=== PATIENT | male | born 1930 | race Caucasian/White ===

== ENCOUNTER 2016-05-04 22:56 | Inpatient (IN) | payer MEDICARE ==
--- NOTE | ~2016-05-04 | OR ---
Unit #: [id number] #: [id number] Patient: NINFA GRANADOS [id number] [address] [address] [id number] I MR#: [id number] NAME: NINFA GRANADOS ROOM: [facility] Date of Procedure: 05/05/2016 Admission Date: 05/05/2016 Surgeon: Sharath Mckeon M.D. : 1930 Attending Physician: Lisa Otero M.D. Primary Care Physician: Williams Mckeon M.D. OPERATIVE REPORT PREOPERATIVE DIAGNOSIS Left femoral neck fracture. POSTOPERATIVE DIAGNOSIS Left femoral neck fracture. PROCEDURE PERFORMED Left hip bipolar hemiarthroplasty, [address]. BIOINFORMATICS SUPPORT SPECIALIST Cy Jean CFA. ANESTHESIA General endotracheal. COMPLICATIONS None. SPECIMENS None. DRAINS None. SURGICAL IMPLANTS 1. Meredith Advocate bipolar hemiarthroplasty system. Size 15 femoral stem. 2. 35 mm outer diameter bipolar shell. 3. +3.5 mm neck length. 4. Distal centralizer. 5. Palacos R+G cement. INDICATION FOR PROCEDURE Mr. Granados is an 85-year-old gentleman who fell injuring his left hip at home. The patient was brought to emergency room, where x-rays confirmed femoral neck fracture. He was admitted to the Medical Service and cleared for surgery. It was felt he would benefit from left hip bipolar hemiarthroplasty. Risks, benefits, and alternatives of surgery were discussed with the patient and family and informed consent was obtained. Risks include, but not limited to, infection, bleeding, nerve injury, blood clots, risks associated with anesthesia, and possibly . DESCRIPTION OF PROCEDURE Unit #: [id number] #: [id number] Patient: NINFA GRANADOS On 05/05/2016, the patient was seen in the preoperative holding area, where his surgical site was marked. Preoperative antibiotics were received. H and P and consent updated. He was taken to the operating room and provided general anesthesia. He was placed in a right lateral decubitus position. Left hip prepped and draped in typical sterile fashion. Time-out performed confirming the correct surgical site and procedure. A standard posterior approach to the hip was performed. IT band and fascia were carefully split. Retractors were placed. Short external rotators were elevated along with the T-capsulotomy. Fracture site identified. Retractors placed and the femoral neck cut was made. Next, the femoral head was removed. It was sized at 53 mm. Trial shell was placed and noted to be appropriate. Sequential broaching of the femur was performed up to 15 mm. It was then reduced. It was felt to be stable. Final implants were opened. The femur was prepared. Cement restrictor was placed. It was brushed, followed by irrigated and suction. Cement was mixed on the back table in standard fashion. It was injected into the femur. The femoral stem was placed with careful attention to anteversion. Excess cement removed. After 12 minutes, the cement had hardened. A +3.5 mm trial head was placed and the hip was reduced. It was felt to be stable and leg lengths were appropriate. The final implant was opened and malleted into place. It was stable. It was then reduced. The T-capsulotomy was repaired. The hip was stable in all directions and leg lengths were felt to be appropriate. The remainder of 3 L normal saline containing bacitracin pulsed through the wound. Hemostasis noted. Deep tissue closed with 0 Vicryl, followed by 2-0 Vicryl for subcutaneous tissues, and cara for skin. Xeroform, 4x4s, ABD pad, tape and abduction pillow were placed. The patient was subsequently awakened from general anesthesia in stable condition and taken to the PACU postoperatively. POSTOPERATIVE PLAN The patient will return to his hospital room upstairs. He will be on standard 24-hour antibiotic protocol. He will be placed on Lovenox for DVT prophylaxis and have SCDs for mechanical prophylaxis. He will be weightbearing as tolerated with physical therapy with posterior hip precautions. No complications encountered during the surgical procedure. Dictated by... Sharath Mckeon M.D. SOUMYA/damon TD: 05/06/2016 02:32 JOB #: [id number] OPERATIVE REPORT X X PROCEDURE OPERATIVE NOTE
--- NOTE | ~2016-05-04 | CR150 ---
[facility] A Service of [facility] & [facility] RADIOLOGY TEXT RESULTS PATIENT: NINFA GRANADOS LOCATION: [facility] 449-01 : 31 UNIT #: [id number] AGE: [address]: Lisa Otero MD SEX: M ORDER DR: [id number] [facility] [address] [address] [facility]. [place], [place] [address] [id number] I MR#: [id number] Acc #: [id number] NAME: NINFA GRANADOS. : 1930 SEX: M STUDY DATE/TIME: 05/04/2016 22:08 UNIT: C4 ROOM: [facility] STUDY DESCRIPTION: CR Hip Min 2 Views Lt Attending Physician: Brenda Britton M.D. Ordering Physician: Mariola Zacarias M.D. Primary Care Physician: Williams Mckeon M.D. MEDICAL IMAGING REPORT This report is preliminary unless electronic signature is present EXAM Left hip 3 views 05/04/2016 HISTORY Left hip pain status post fall today. FINDINGS 3 views of the left hip demonstrate comminuted impacted fracture through the midportion of the left femoral neck with resulting varus deformity. No other fracture or dislocation is seen. The bones are normally mineralized. There is no soft tissue abnormality. IMPRESSION Comminuted impacted fracture through the left femoral neck with resulting varus deformity. Dictated by... Tello Chase M.D. THIS IS AN ELECTRONICALLY VERIFIED REPORT Tello Chase M.D. at 05/05/2016 2:19 PM KRT/lacey TD: 05/05/2016 06:16 JOB #: [id number] MEDICAL IMAGING REPORT COPY
--- NOTE | ~2016-05-04 | DS ---
Unit #: [id number] #: [id number] Patient: NINFA GRANADOS [id number] [address] [address] [id number] I MR#: [id number] NAME: NINFA GRANADOS ROOM: 472 Age: 85 Sex: M Admission Date: 05/05/2016 : 1930 Discharge Date: 05/09/2016 Attending Physician: Kayy Jiang M.D. Primary Care Physician: Williams Mckeon M.D. DISCHARGE SUMMARY ADDENDUM This is an addendum to previous discharge summary dictated by Dr. Otero on 05/08/16. Patient's discharge was held as we were waiting for a bed. The patient has a bed in rehab today; therefore, he will be transferred. The patient is comfortable. He is not in any acute distress. Medications as per med reconciliation form. Dictated by... Yaz Dumont/neto TD: 05/09/2016 12:58 JOB #: [id number] DISCHARGE SUMMARY X Kayy Jiang MD X DISCHARGE SUMMARY
--- NOTE | ~2016-05-04 | DS ---
Unit #: [id number] #: [id number] Patient: NINFA GRANADOS [id number] [address] [address] [id number] I MR#: [id number] NAME: NINFA GRANADOS. ROOM: 472 Age: 85 Sex: M Admission Date: 05/05/2016 : 1930 Discharge Date: Attending Physician: Lisa Otero M.D. Primary Care Physician: Williams Mckeon M.D. DISCHARGE SUMMARY PLANNED DATE OF DISCHARGE May 08, 2016 PRINCIPAL DIAGNOSES 1. Comminuted left femoral neck fracture status post left hip bipolar prosthesis. 2. Acute postoperative blood loss anemia. 3. Acute on probable chronic hypoxic respiratory failure. 4. Transaminitis, resolved. 5. Chronic kidney disease stage 3 with baseline creatinine of 1.7. 6. Hypothyroidism, uncontrolled. Thyroid stimulating hormone elevated at 15. 7. Mild left hip hematoma. 8. Osteoporosis. 9. History of hypertension with stable blood pressure off of antihypertensive medication currently. 10. Chronic obstructive pulmonary disease. 11. 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 12. Moderate protein malnutrition. 13. Reactive leukocytosis. 14. Depression. 15. Gastroesophageal reflux disease. 16. Tobaccoism. CONSULTANTS Dr. Mckeon, orthopedic surgery. PROCEDURES 1. Left hip bipolar hemiarthroplasty on May 05, 2016. This occurred without complication. 2. Left hip x-ray on May 04, 2016 with comminuted impacted fracture through the left femoral neck with resulting varus deformity. 3. Chest x-ray on May 04, 2016 with cardiomegaly. Fibrosis of the lung is noted. 4. X-ray of pelvis on May 05, 2016 with new hip replacement noted. CLINICAL HISTORY AND HOSPITAL COURSE Mr. Granados is a nice, 85-year-old male who presents to the emergency department with left-sided hip pain after falling at home. Please refer to H and P for further details. X-ray of the left hip in the emergency department revealed a fracture. Patient was also found to be significantly hypoxic in the emergency department with O2 sats in the high 80s on 4 L. He was also found to have an elevated creatinine of 1.7. Unit #: [id number] #: [id number] Patient: NINFA GRANADOS Patient was subsequently admitted. In regard to the patient's fracture, Dr. Mckeon was consulted and patient underwent left hip bipolar hemiarthroplasty. Postoperatively he has done very well. He has had a mild drop in his hemoglobin following surgery. Preoperative hemoglobin was found to be significantly elevated at 15.7 and at time of dictation is now down to 10.1. Examination is consistent with perhaps a very mild left hip hematoma. Will monitor hemoglobin and transfuse if necessary. He will remain on anticoagulation for two weeks total. I have also placed him on calcium and vitamin D given his new diagnosis of osteoporosis. He may benefit from bisphosphonates as an outpatient. In regard to the patient's hypoxia, he has been maintained on oxygen. Fortunately this has been titrated a bit since initial hospitalization but he is still requiring one to two liters of oxygen to maintain sats greater than 90%. A room air ABG done yesterday does reveal a significantly low pO2 of 50. I suspect he has some chronic respiratory failure at baseline. He will wear oxygen at rehab and they can evaluate for need of home O2 prior to discharge. In regard to the patient's elevated creatinine, his antihypertensive medications were held. Creatinine remains stable at 1.7. He has not had any significant post-void residual. This appears to be his baseline creatinine and it can be followed up by his primary care provider upon discharge. In regard to the patient's elevated LFTs, this is likely just reactive and these have normalized. Patient did not have any evidence of significant rhabdomyolysis. Patient has also had a reactive leukocytosis but this is trending down since hospitalization. I have discussed all these findings with the patient's daughter who expressed her understanding. She does not that he has some memory loss at baseline and is now not driving. He is needing help with his bills. She thinks he is also forgetting his medications at home; this maybe in agreement with his elevated TSH. We have discussed dementia extensively and perhaps some loss of function following hospitalization. I have also increased his Synthroid. He will need a followup TSH in six weeks. Patient is felt to be appropriate for subacute rehab and he will transfer to subacute rehab when bed available on the or . DISCHARGE CONDITION Stable. DISCHARGE STATUS Discharge to subacute rehab. DISCHARGE MEDICATIONS 1. DuoNeb nebulizer treatments 3 mL inhaled t.i.d. p.r.n. for shortness of air. 2. Lovenox 40 mg subcu q.24 h. to stop after dose on May 19, 2016. 3. Zoloft 50 mg q.h.s. 4. Zyrtec 10 mg daily. 5. Klonopin 0.25 mg q.h.s. p.r.n. for insomnia. Unit #: [id number] #: [id number] Patient: NINFA GRANADOS 6. Senokot S one tablet b.i.d. 7. Bisacodyl 5 mg p.o. b.i.d. p.r.n. for constipation. 8. Aspirin 81 mg daily. 9. [place] 5/325 one to two tablets q.4 h. p.r.n. for pain. 10. Prilosec 40 mg daily. 11. Os-Dandy 500 plus D one tablet b.i.d. 12. Levothyroxine 100 mcg p.o. daily. 13. Oxygen to maintain sats greater than or equal to 90%. DISCHARGE INSTRUCTIONS 1. The patient was instructed to follow a heart-healthy diet. 2. He can increase activity as tolerated under the care of Physical and Occupational Therapy. 3. Again will titrate O2 and will need O2 arranged at home if necessary. FOLLOWUP 1. The patient needs a followup TSH in six weeks. 2. Again home oxygen arranged if O2 sats are less than 90% on room air at rehab. 3. He will follow up with Dr. Mckeon in approximately two weeks. 4. He will follow up with his primary care provider, Dr. Williams Mckeon, upon discharge from rehab. 5. May need alternate living arrangements soon after rehab. Dictated by... Lisa Otero M.D. MYRA/arina TD: 05/07/2016 14:27 JOB #: [id number] DISCHARGE SUMMARY X Lisa Otero MD X DISCHARGE SUMMARY
--- NOTE | ~2016-05-04 | CR206 ---
[facility] A Service of [facility] RADIOLOGY TEXT RESULTS PATIENT: NINFA GRANADOS LOCATION: [place] [address] : [birth year] UNIT #: [id number] AGE: [address]: Lisa Otero MD SEX: M ORDER DR: [id number] [facility] [address] [facility]. [place], [place] [address] [id number] I MR#: [id number] Acc #: [id number] NAME: NINFA GRANADOS : 1930 SEX: M STUDY DATE/TIME: 05/05/2016 14:47 UNIT: [facility] ROOM: [facility] STUDY DESCRIPTION: CR Pelvis 1 or 2 Views Attending Physician: Lisa Otero M.D. Ordering Physician: Lisa Otero M.D. Primary Care Physician: Williams Mckeon M.D. MEDICAL IMAGING REPORT This report is preliminary unless electronic signature is present EXAM AP pelvis. DATE OF EXAM 05/05/2016 at 14:47. HISTORY Postop left hip surgery. Pain. Symptoms began today. COMPARISON Left hip radiograph 05/04/2016 at 22:08. FINDINGS There is a comminuted fracture of the greater trochanter of the left femur which appears new in comparison to the preoperative study of 05/04/2016. Left hip replacement changes are present, the prosthesis appears new in comparison to 05/04/2016. Left hip prosthesis appears appropriately located. Skin cara project over the left upper lateral thigh with expected postoperative subcutaneous air. Right hip joint spaces are mildly narrowed. Osteopenia. IMPRESSION New left hip replacement changes since 05/04/2016. There appears be a new comminuted fracture of the greater trochanter of the left femur. No hip dislocation. Dictated by... Analisa Mcnamara M.D. THIS IS AN ELECTRONICALLY VERIFIED REPORT Analisa Mcnamara M.D. at 05/06/2016 10:[address] [facility]/jt [facility] A Service of [facility] RADIOLOGY TEXT RESULTS PATIENT: NINFA GRANADOS LOCATION: [place] [address] : [birth year] UNIT #: [id number] AGE: [address]: Lisa Otero MD SEX: M ORDER DR: TD: 05/05/2016 22:14 JOB #: [id number] MEDICAL IMAGING REPORT COPY
--- NOTE | ~2016-05-04 | CO ---
Unit #: [id number] #: [id number] Patient: NINFA GRANADOS [id number] [address] [place], [place] [address] [id number] I MR#: [id number] NAME: NINFA GRANADOS ROOM: 449 Age: 85 Sex: M Admission Date: 05/05/2016 : 1930 Attending Physician: Lisa Otero M.D. Primary Care Physician: Williams Mckeon M.D. CONSULTATION REPORT HISTORY OF PRESENT ILLNESS Mr. Granados is an 85-year-old gentleman, who lives at home alone. His daughter does live down the street about a mile away, but he fell yesterday and injured his left hip. He was brought to the emergency room and his x-rays revealed a displaced left femoral neck fracture. He is admitted for orthopedic care. PAST MEDICAL HISTORY Reveals that he does have a history of lung disease. He is a chronic smoker three quarters of a pack a day and he does have some cardiac history. Although, he denies chest pain or shortness of breath. He has hypothyroidism, reflux, chronic kidney disease with an elevated creatinine, anxiety, fibromyalgia, and depression. PAST SURGICAL HISTORY His surgeries in the past include thyroid surgery. He had hemorrhoidectomy, cholecystectomy, colonoscopy, cataract excision, and some other type of abdominal surgery. He also had hernia repair. ALLERGIES He lists aspirin as an allergy, but he takes an 81 mg aspirin daily and he is also allergic to codeine. MEDICATIONS His medications at home include aspirin, Klonopin, Neurontin, Prilosec, Zoloft, Zyrtec, Synthroid, and Dyazide. SOCIAL HISTORY He lives at home. He continues to smoke about three quarters of a pack a day of cigarettes and he occasionally enjoys a glass of wine. PHYSICAL EXAMINATION GENERAL: Today, reveals that he is alert, awake, and oriented x3. VITAL SIGNS: He is afebrile, pulse is 79, his blood pressure is 118/70. MUSCULOSKELETAL: His orthopedic exam reveals his upper extremities move well. Right lower extremity moves well. His left hip is externally rotated. His neurovascular exam is intact. DIAGNOSTIC STUDIES IMAGING STUDIES: His x-rays were reviewed. He has a displaced left femoral neck fracture. PLAN Plan will be for a bipolar prosthesis on the left side. Unit #: [id number] #: [id number] Patient: NINFA GRANADOS Dictated by... Yaz Carrillo/damon TD: 05/05/2016 22:38 JOB #: [id number] CONSULTATION REPORT X Sterling Becerra MD X CONSULTATION REPORT
--- NOTE | ~2016-05-04 | EKG ---
PATIENT: NINFA GRANADOS UNIT #: [id number] Ventricular Rate: 79 BPM Atrial Rate: 79 BPM P-R Interval: 180 ms QRS Duration: 108 ms Q-T Interval: 382 ms QTC Calculation(Bezet): 438 ms P Morley: 38 degrees Calculated R Morley: -79 degrees Calculated T Morley: 16 degrees Diagnosis Line: Normal sinus rhythm Diagnosis Line: Left axis deviation Diagnosis Line: Anterior infarct (cited on or before 04-MAY-2016) Diagnosis Line: Abnormal ECG Diagnosis Line: When compared with ECG of 19-JUN-2015 22:39, Diagnosis Line: No significant change was found Diagnosis Line: Confirmed by REENA HAZEL MD ([id number]) on 05/05/2016 Diagnosis Line: 5:43:21 PM INTERPRETING MD: YASEMIN OMER
--- NOTE | ~2016-05-04 | HP ---
Unit #: [id number] #: [id number] Patient: NINFA GRANADOS [id number] [address] [place], [place] [address] [id number] I MR#: [id number] NAME: NINFA GRANADOS. ROOM: [facility] Age: 85 Sex: M Admission Date: 05/05/2016 : 1930 Attending Physician: Brenda Britton M.D. Primary Care Physician: Williams Mckeon M.D. HISTORY AND PHYSICAL CHIEF COMPLAINT Mechanical fall with left femoral neck fracture. HISTORY This pleasant 85-year-old male with hypertension, hypothyroidism, chronic kidney disease, is admitted for left femoral neck fracture. The patient tripped backwards last evening onto his left hip. He was able to call his daughter after being on the floor for about an hour. He was brought to this emergency department with a blood pressure of 100/69, pulse 81. X-rays demonstrate a left femoral neck fracture. The patient's O2 sats were also noted to be somewhat low in the ER requiring oxygen. He denies chronic lung disease but continues to smoke 3/4 pack per day of tobacco. Chest x-ray performed showed atelectasis versus pulmonary fibrosis. The patient denies history of heart disease. He had an echo performed 2010 showing normal LV function with impaired relaxation. A Cardiolite stress test was negative for ischemia at that time. His current EKG is unchanged from previous, and he denies any exertional chest pain. In the ER, he was given 4 mg of IV morphine, and Zofran. A call was also made to orthopedic surgery. PAST MEDICAL HISTORY 1. Hypertension. 2. Hypothyroidism. 3. GERD. 4. Chronic kidney disease with a creatinine of 1.3 to 1.5. 5. Depression. 6. Seasonal allergies. 7. Anxiety. 8. Fibromyalgia. 9. Echo 2010 showing normal LV function with impaired relaxation. Trace aortic regurgitation. Patient underwent a negative Cardiolite stress test for ischemia at that time. 10. Bilateral lymphedema. 11. Pilonidal cyst removed. 12. Abdominal surgery of some type. 13. Hemorrhoidectomy. 14. Cholecystectomy. 15. Colonoscopy with polyps removed. 16. Cataract extraction. 17. Inguinal hernia repair. ALLERGIES High dose aspirin although patient is able to take low dose aspirin. The Unit #: [id number] #: [id number] Patient: NINFA GRANADOS patient is also allergic to codeine. HOME MEDICATIONS 1. Aspirin 81 mg daily. 2. Klonopin 1 mg q. h.s. 3. Neurontin 300 mg b.i.d. 4. Prilosec 40 mg daily. 5. Zoloft 50 mg q. h.s. 6. Zyrtec 10 mg daily. 7. Synthroid 0.05 mg daily. 8. Dyazide one tablet daily. FAMILY HISTORY CAD. SOCIAL HISTORY The patient lives alone. Continues to smoke 3/4 pack per day of tobacco. Seldom drinks alcohol. REVIEW OF SYSTEMS Notable for mechanical fall, left hip pain, hypertension, hypothyroidism, GERD, anxiety/depression, fibromyalgia, lymphedema, above mentioned surgeries. All other systems were reviewed and are otherwise negative. PHYSICAL EXAMINATION GENERAL APPEARANCE: Pleasant 85-year-old male who currently is in no acute distress. VITAL SIGNS: Temperature 98.8, pulse 81, respirations 16, blood pressure 100/69. O2 saturation was 88% on oxygen. HEENT: Eyes PERRLA. Extraocular muscles are intact. Pharynx is benign. NECK: Supple without adenopathy or thyromegaly. CHEST: Fairly clear at present although ER doctor did auscultate some rales earlier. CARDIAC: Normal S1 and S2 without murmur. ABDOMEN: Bowel sounds are present. Multiple well-healed scars. Nontender. No hepatosplenomegaly or masses. EXTREMITIES: With mild edema. Pedal pulses are present bilaterally. Left leg is foreshortened and externally rotated. NEUROLOGIC EXAM: The patient is awake, alert, oriented. His cranial nerves are intact except that he is hard of hearing. He has equal strength throughout. DIAGNOSTIC STUDIES LABORATORY: Admission labs - hematocrit is 47.4, white blood count 15.5, normal platelet count. SMA-7 - BUN 25, creatinine 1.7, up from a creatinine of 1.3 to 1.5 in the past. IMAGING: Chest x-ray - stable cardiomegaly, atelectasis versus fibrosis. X-ray of the pelvis shows a left femoral neck fracture. CARDIOVASCULAR: EKG - normal sinus rhythm, rate 79, somewhat poor R wave progression. Left anterior fascicular block. This is unchanged from before. ASSESSMENT Unit #: [id number] #: [id number] Patient: NINFA GRANADOS 1. Mechanical fall with left femoral neck fracture. 2. History of hypertension, on Maxzide. 3. Acute on chronic kidney disease, possibly related to Maxzide. 4. Negative cardiac workup 2011 including echo and Cardiolite stress test. EKG is unchanged and the patient denies exertional chest pain. 5. Lower extremity lymphedema. 6. Ongoing tobacco abuse. 7. Mild respiratory failure, likely related to ongoing tobacco abuse and likely underlying chronic obstructive pulmonary disease. Cannot exclude pulmonary fibrosis. PLANS 1. The patient is cleared for surgery. 2. Duo-Nebs and smoking cessation counseling. 3. Obtain urinalysis. 4. Gentle IV fluids and discontinue Maxzide for now. 5. Orthopedic surgeon has been consulted. 6. Supportive treatment. 7. Decrease Klonopin while receiving pain medicines. Dictated by Yaz Hunt/df TD: 05/05/2016 05:13 JOB #: [id number] HISTORY AND PHYSICAL X Brenda Britton MD HISTORY AND PHYSICAL
--- NOTE | ~2016-05-04 | CR72 ---
[facility] A Service of [facility] & [facility] RADIOLOGY TEXT RESULTS PATIENT: NINFA GRANADOS LOCATION: [place] [address]- : 31 UNIT #: [id number] AGE: [address]: Lisa Otero MD SEX: M ORDER DR: [id number] [facility] [address] [place], [place] [address] [id number] I MR#: [id number] Acc #: [id number] NAME: NINFA GRANADOS. : 1930 SEX: M STUDY DATE/TIME: 05/04/2016 23:00 UNIT: [facility] ROOM: [facility] STUDY DESCRIPTION: CR Chest Single View Portable Attending Physician: Brenda Britton M.D. Ordering Physician: Mariola Zacarias M.D. Primary Care Physician: Williams Mckeon M.D. MEDICAL IMAGING REPORT This report is preliminary unless electronic signature is present EXAM Portable chest 05/05/2015 HISTORY Shortness of breath and generalized weakness status post fall today. Smoking history. FINDINGS The heart is enlarged but stable compared with 06/19/2015. Thoracic aorta is minimally calcified and ectatic. There is poor inspiratory result with bibasilar atelectasis or fibrosis. The upper lungs are clear. There are no pleural effusions. IMPRESSION 1. Stable cardiomegaly compared with 06/19/2015. 2. Poor inspiratory result with atelectasis or fibrosis. Dictated by... Tello Chase M.D. THIS IS AN ELECTRONICALLY VERIFIED REPORT Tello Chase M.D. at 05/05/2016 2:19 PM VERONICA/leila TD: 05/05/2016 07:07 JOB #: [id number] MEDICAL IMAGING REPORT COPY
[~2016-05-04 22:56] MED LIST: ACETAMINOPHEN PO; ALLEGRA PO; ALLERGY RELIEF10 M1 PO; AMLODIPINE BESYL5 MG PO; ASPIRIN81 M2 PO; ASPIRINEC PO; CATAFLAM50 MG PO; CLARITIN10 M2 PO; CLONAZEPAM0.5 MG PO; DARVOCET-N 1001 TAB PO; DESYREL50 MG PO; DITROPAN XL PO; FLAGYL PO; FLEXERIL PO; FLONASE 0.05% N16 G1; FLONASE16 GM; GABAPENTIN300 M2 PO; K-DUR20 ME2 PO; KEFLEX PO; KLONOPIN PO; KLONOPIN1 MG PO; LANSOPRAZOLE30 MG PO; LASIX PO; LESCOL XL80 MG PO; LEVAQUIN PO; LEVOTHYROXINE150 MCG PO; LEVSIN PO; LOW DOSE ASPIRI81 M2 PO; METAMUCIL PACKE1 PK1 PO; METAMUCIL PO; METAMUCIL0.52 G PO; METAMUCIL1 PKT PO; METAMUCIL283 GM PO; NEURONTIN100 MG PO; NORVASC PO; OMEPRAZOLE40 M1 PO; PEN-VEE K PO; PRILOSEC PO; PRILOSEC40 MG PO; PRINIVIL PO; SENNA PO; SENNA S TABLET1 TAB PO; SENOKOT S PO; SERTRALINE HCL50 M1 PO; SERTRALINE HCL50 MG PO; SYNTHROID PO; SYNTHROID0.05 MG PO; SYNTHROID0.15 MG PO; TRAMADOL HCL50 M1 PO; TRAMADOL HCL50 M2 PO; TRANXENE PO; TRAZODONE HCL100 MG PO; TRIAMTERENE/HCT1 TA2 PO; ZOLOFT PO; ZOLOFT50 MG PO; ZYRTEC10 M3 PO
[2016-05-04 23:30] LABS: BASOPHIL# 0.1 X10e3 (0-0.3); BASOPHIL% 0.5 % (0-2.5); DIFF IND YES; EOSINOPHIL# 0.1 X10e3 (0-0.7); EOSINOPHIL% 0.4 % (0.0-7.0); HEMATOCRIT 47.4 % (38.0-50.0); HEMOGLOBIN 15.7 gm/dL (13.0-16.0); LYMPHOCYTE# 1.1 X10e3 (1.0-3.5); MEAN CELL VOLUME 89.4 FL (83-96); MEAN CORPUSCULAR HEMOGLOBIN 29.6 PG (28-34); MEAN CORPUSCULAR HGB CONC 33.2 g/dL (30-36); MEAN PLATELET VOLUME 9.6 FL (6.5-11.5); MONOCYTE# 1.2 X10e3 (0-1.0); MONOCYTE% 7.7 % (3.0-12.0); NEUTROPHIL# 13.1 X10e3 (1.5-7.1); NEUTROPHIL% 84.4 % (40-75); PLATELET COUNT 208 X10e3 (140-420); RED BLOOD COUNT 5.31 X10e (3.90-5.60); RED CELL DISTRIBUTION WIDTH 13.9 % (11.0-15.5); WHITE BLOOD COUNT 15.5 X10e3 (4.0-10.5)
[2016-05-04 23:47] LABS: PLATELET ESTIMATE DECREASED (NORMAL)
[2016-05-04 23:48] LABS: POIKILOCYTOSIS SL; TEAR DROP CELLS PRESENT
[2016-05-05 00:29] LABS: BUN/CREATININE RATIO 14.7; CALCIUM SERUM 8.7 mg/dL (8.4-10.2); CREATININE SERUM 1.7 mg/dL (0.6-1.4); POTASSIUM 3.9 mmol/L (3.5-5.1)
[2016-05-05 00:41] LABS: INR 1.1; PROTHROMBIN TIME (PATIENT) 11.2 SECONDS (9.6-11.5)
[2016-05-05 03:27] LABS: INR 1.1; PARTIAL THROMBOPLASTIN TIME 26.4 SECONDS (23.5-31.3); PROTHROMBIN TIME (PATIENT) 11.4 SECONDS (9.6-11.5)
[2016-05-05 03:36] LABS: ALBUMIN SERUM 3.3 g/dL (3.5-5.0); BUN/CREATININE RATIO 12.94; CALCIUM SERUM 8.5 mg/dL (8.4-10.2); CREATININE SERUM 1.7 mg/dL (0.6-1.4); POTASSIUM 4.1 mmol/L (3.5-5.1); PROTEIN TOTAL SERUM 6.1 g/dL (6.0-8.3)
[2016-05-05 03:52] LABS: URINE SOURCE CATH
[2016-05-05 04:14] LABS: URINE APPEARANCE CLEAR; URINE BILIRUBIN NEG (NEG); URINE BLOOD NEG (NEG); URINE COLOR YELLOW; URINE GLUCOSE NEG (NEG); URINE KETONE NEG (NEG); URINE LEUKOCYTE ESTERASE NEG (NEG); URINE NITRATE NEG (NEG); URINE PROTEIN NEG (NEG); URINE SPECIFIC GRAVITY 1.017 (1.003-1.035); URINE UROBILINOGEN 0.2 MG/DL (NEG)
[2016-05-06 03:00] LABS: BASOPHIL% 0.4 % (0-2.5); EOSINOPHIL% 0.2 % (0.0-7.0); HEMATOCRIT 37.8 % (38.0-50.0); LYMPHOCYTE% 7.7 % (17.0-45.0); MEAN CELL VOLUME 89.7 FL (83-96); MEAN CORPUSCULAR HEMOGLOBIN 29.8 PG (28-34); MEAN CORPUSCULAR HGB CONC 33.3 g/dL (30-36); MONOCYTE# 1.5 X10e3 (0-1.0); MONOCYTE% 11.4 % (3.0-12.0); NEUTROPHIL# 10.2 X10e3 (1.5-7.1); NEUTROPHIL% 80.3 % (40-75); PLATELET COUNT 165 X10e3 (140-420); RED BLOOD COUNT 4.22 X10e (3.90-5.60); WHITE BLOOD COUNT 12.8 X10e3 (4.0-10.5)
[2016-05-06 03:02] LABS: DIFF IND NO; HEMOGLOBIN 12.6 gm/dL (13.0-16.0)
[2016-05-06 03:29] LABS: ALBUMIN SERUM 3.1 g/dL (3.5-5.0); BUN/CREATININE RATIO 14.11; CALCIUM SERUM 7.9 mg/dL (8.4-10.2); CREATININE SERUM 1.7 mg/dL (0.6-1.4); MAGNESIUM 1.8 mg/dL (1.6-3.0); POTASSIUM 3.9 mmol/L (3.5-5.1); PROTEIN TOTAL SERUM 6.1 g/dL (6.0-8.3)
[2016-05-06 09:49] LABS: ARTERIAL BLD GAS O2 SATURATION 84.9 % (90.0-100.0); ARTERIAL BLOOD GAS CARBOXY HB 1.2 %sat (0.0-9.0); ARTERIAL BLOOD GAS HCO3 24.3 mmol/L; ARTERIAL BLOOD GAS MET HB 0.6 %sat (0.0-2.0); ARTERIAL BLOOD GAS PCO2 39.3 mmHg (35.0-45.0)
[2016-05-06 09:50] LABS: ARTERIAL BLOOD GAS PO2 50.6 mmHg (80.0-100)
[2016-05-06 09:51] LABS: ARTERIAL BLOOD GAS ALLEN TEST NORMAL; ARTERIAL BLOOD GAS ART SITE LEFT RADIAL; ARTERIAL DRAW? YES
[2016-05-07 03:48] LABS: BASOPHIL% 0.2 % (0-2.5); EOSINOPHIL# 0.1 X10e3 (0-0.7); EOSINOPHIL% 0.4 % (0.0-7.0); HEMATOCRIT 30.6 % (38.0-50.0); LYMPHOCYTE# 1.1 X10e3 (1.0-3.5); LYMPHOCYTE% 8.7 % (17.0-45.0); MEAN CORPUSCULAR HEMOGLOBIN 29.6 PG (28-34); MEAN CORPUSCULAR HGB CONC 32.9 g/dL (30-36); MEAN PLATELET VOLUME 8.6 FL (6.5-11.5); MONOCYTE# 1.7 X10e3 (0-1.0); MONOCYTE% 12.6 % (3.0-12.0); NEUTROPHIL# 10.4 X10e3 (1.5-7.1); NEUTROPHIL% 78.1 % (40-75); PLATELET COUNT 149 X10e3 (140-420); RED CELL DISTRIBUTION WIDTH 13.7 % (11.0-15.5); WHITE BLOOD COUNT 13.2 X10e3 (4.0-10.5)
[2016-05-07 03:50] LABS: DIFF IND NO; HEMOGLOBIN 10.1 gm/dL (13.0-16.0)
[2016-05-07 04:14] LABS: ALBUMIN SERUM 2.9 g/dL (3.5-5.0); BILIRUBIN,TOTAL 0.9 mg/dL (0.2-2.0); BUN/CREATININE RATIO 18.23; CALCIUM SERUM 8.2 mg/dL (8.4-10.2); CREATININE SERUM 1.7 mg/dL (0.6-1.4)
[2016-05-08 03:51] LABS: BASOPHIL% 0.3 % (0-2.5); EOSINOPHIL# 0.2 X10e3 (0-0.7); EOSINOPHIL% 1.6 % (0.0-7.0); HEMATOCRIT 25.2 % (38.0-50.0); HEMOGLOBIN 8.6 gm/dL (13.0-16.0); LYMPHOCYTE# 1.4 X10e3 (1.0-3.5); LYMPHOCYTE% 13.3 % (17.0-45.0); MEAN CELL VOLUME 89.9 FL (83-96); MEAN CORPUSCULAR HEMOGLOBIN 30.5 PG (28-34); MEAN PLATELET VOLUME 8.6 FL (6.5-11.5); MONOCYTE# 1.3 X10e3 (0-1.0); MONOCYTE% 12.3 % (3.0-12.0); NEUTROPHIL# 7.9 X10e3 (1.5-7.1); NEUTROPHIL% 72.5 % (40-75); PLATELET COUNT 145 X10e3 (140-420); RED BLOOD COUNT 2.81 X10e (3.90-5.60); RED CELL DISTRIBUTION WIDTH 13.8 % (11.0-15.5); WHITE BLOOD COUNT 10.9 X10e3 (4.0-10.5)
[2016-05-08 03:52] LABS: DIFF IND NO
[2016-05-08 04:15] LABS: BUN/CREATININE RATIO 19.33; CALCIUM SERUM 8.1 mg/dL (8.4-10.2); CREATININE SERUM 1.5 mg/dL (0.6-1.4); GLOM FILT RATE Estimated 47.4 mL/min (>60); POTASSIUM 3.6 mmol/L (3.5-5.1)
[2016-05-09 03:51] LABS: BASOPHIL# 0.1 X10e3 (0-0.3); BASOPHIL% 0.6 % (0-2.5); EOSINOPHIL# 0.3 X10e3 (0-0.7); EOSINOPHIL% 3.2 % (0.0-7.0); HEMATOCRIT 24.3 % (38.0-50.0); HEMOGLOBIN 8.3 gm/dL (13.0-16.0); LYMPHOCYTE# 1.6 X10e3 (1.0-3.5); LYMPHOCYTE% 17.2 % (17.0-45.0); MEAN CELL VOLUME 90.3 FL (83-96); MEAN CORPUSCULAR HEMOGLOBIN 30.9 PG (28-34); MEAN CORPUSCULAR HGB CONC 34.3 g/dL (30-36); MEAN PLATELET VOLUME 8.9 FL (6.5-11.5); MONOCYTE% 10.5 % (3.0-12.0); NEUTROPHIL# 6.4 X10e3 (1.5-7.1); NEUTROPHIL% 68.5 % (40-75); PLATELET COUNT 161 X10e3 (140-420); RED BLOOD COUNT 2.69 X10e (3.90-5.60); RED CELL DISTRIBUTION WIDTH 13.3 % (11.0-15.5); WHITE BLOOD COUNT 9.4 X10e3 (4.0-10.5)
[2016-05-09 03:52] LABS: DIFF IND NO
== END 2016-05-09 15:40 | DRG 469 ==
LOC: CED 22:56 → C4B 05-05 01:00 → C4C 05-06 17:35
PROVIDERS: Emergency Medicine; Internal Medicine; Orthopaedic Surgery
PROC: 0SRS0J9 Replacement of Left Hip Joint, Femoral Surface with Synthetic Substitute, Cemented, Open Approach (ICD-10-PCS; principal; 2016-05-05 12:00)
DX: S72.002A Fracture of unspecified part of neck of left femur, initial encounter for closed fracture (principal); J96.21 Acute and chronic respiratory failure with hypoxia; N17.9 Acute kidney failure, unspecified; E44.0 Moderate protein-calorie malnutrition; D62 Acute posthemorrhagic anemia; J98.11 Atelectasis; W01.0XXA Fall on same level from slipping, tripping and stumbling without subsequent striking against object, initial encounter; Y92.009 Unspecified place in unspecified non-institutional (private) residence as the place of occurrence of the external cause; F17.210 Nicotine dependence, cigarettes, uncomplicated; I12.9 Hypertensive chronic kidney disease with stage 1 through stage 4 chronic kidney disease, or unspecified chronic kidney disease; N18.3 Chronic kidney disease, stage 3 (moderate); R74.0 Nonspecific elevation of levels of transaminase and lactic acid dehydrogenase [LDH]; E03.9 Hypothyroidism, unspecified; S70.02XA Contusion of left hip, initial encounter; M81.0 Age-related osteoporosis without current pathological fracture; F01.50 Vascular dementia, unspecified severity, without behavioral disturbance, psychotic disturbance, mood disturbance, and anxiety; J44.9 Chronic obstructive pulmonary disease, unspecified; D72.829 Elevated white blood cell count, unspecified; F32.9 Major depressive disorder, single episode, unspecified; K21.9 Gastro-esophageal reflux disease without esophagitis; M21.152 Varus deformity, not elsewhere classified, left hip; J84.10 Pulmonary fibrosis, unspecified; F41.9 Anxiety disorder, unspecified; M79.7 Fibromyalgia; Z90.49 Acquired absence of other specified parts of digestive tract; I89.0 Lymphedema, not elsewhere classified; Z88.5 Allergy status to narcotic agent; Z68.25 Body mass index [BMI] 25.0-25.9, adult; Z86.010 Personal history of colon polyps; Z98.49 Cataract extraction status, unspecified eye; Z82.49 Family history of ischemic heart disease and other diseases of the circulatory system; Z71.6 Tobacco abuse counseling
CPT/HCPCS: 36415; 36600; 71010; 72170; 73502; 80048; 80053; 81003; 82550; 82803; 82947; 83735; 83880; 84443; 85025; 85610; 85730; 86850; 86900; 86901; 87086; 93005; 94640; 94760; 96374; 96375; 97110; 97116; 97163; 97167; 97530; 97535; 99285; C1776; G8978-GP; G8979-GP; G8987-GO; G8988-GO; J0330; J0690; J1650; J2270; J2405; J3010

== ENCOUNTER 2016-06-03 14:15 | Inpatient (IN) | payer MEDICARE ==
--- NOTE | ~2016-06-03 | EKG ---
PATIENT: NINFA GRANADOS UNIT #: [id number] Ventricular Rate: 93 BPM Atrial Rate: 93 BPM P-R Interval: 170 ms QRS Duration: 104 ms Q-T Interval: 370 ms QTC Calculation(Bezet): 460 ms P [place]: 54 degrees Calculated R [place]: -78 degrees Calculated T [place]: 37 degrees Diagnosis Line: Normal sinus rhythm Diagnosis Line: Left anterior fascicular block Diagnosis Line: Non-specific intra-ventricular conduction block Diagnosis Line: Abnormal ECG Diagnosis Line: When compared with ECG of 04-MAY-2016 22:50, Diagnosis Line: Nonspecific T wave abnormality no longer evident Diagnosis Line: in Lateral leads Diagnosis Line: Confirmed by JENNIFER DELGADO MD ([id number]) on 06/03/2016 Diagnosis Line: 7:25:27 PM INTERPRETING MD: DANNY OMER
--- NOTE | ~2016-06-03 | CR72 ---
[facility] A Service of [facility] RADIOLOGY TEXT RESULTS PATIENT: NINFA GRANADOS LOCATION: [facility] : 31 UNIT #: [id number] AGE: [address]: Sheree Jurado MD SEX: M ORDER DR: [id number] [facility] [address] [place], [place] [address] [id number] I MR#: [id number] Acc #: [id number] NAME: NINFA GRANADOS. : 1930 SEX: M STUDY DATE/TIME: 06/03/2016 14:28 UNIT: [facility] ROOM: [id number] STUDY DESCRIPTION: CR Chest Single View Portable Attending Physician: Sheree Jurado M.D. Ordering Physician: Glenroy Rodgers M.D. Primary Care Physician: Williams Mckeon M.D. MEDICAL IMAGING REPORT This report is preliminary unless electronic signature is present EXAM Portable chest x-ray. DATE OF EXAM 06/03/2016 HISTORY Short of air, possible TIA. Symptoms began 06/03/2016. REPORT AP radiograph of the chest is presented. COMPARISON 05/04/2016 FINDINGS No acute bony abnormality. Old healed posterolateral left 6th rib fracture. Degenerative changes in the spine. Stable mild cardiac enlargement. Stable tortuosity of descending thoracic aorta. The lungs are well-inflated. Linear scarring at the right lung base. There is no evidence of acute infectious or inflammatory disease, pleural effusion or pneumothorax. 7-8 mm faint nodular density projecting at the left lung base. Not present on prior examination. Interval development of true pulmonary nodule in short time-frame from prior study felt unlikely, though, not entirely excluded. The findings most likely left nipple shadow artifact. Repeat examination with nipple markers in place recommended to confirm nipple shadow artifact. If nipple shadow etiology is not confirmed, then CT of the chest would be warranted for further evaluation. Prior cholecystectomy. Dictated by... [facility] A Service [facility] RADIOLOGY TEXT RESULTS PATIENT: NINFA GRANADOS LOCATION: [facility] : 31 UNIT #: [id number] AGE: [address]: Sheree Jurado MD SEX: M ORDER DR: Cy Madrid M.D. THIS IS AN ELECTRONICALLY VERIFIED REPORT Cy Madrid M.D. at 06/05/2016 10:42 PM Elvia TD: 06/03/2016 17:53 JOB #: [id number] MEDICAL IMAGING REPORT Page 1 of 1 COPY
--- NOTE | ~2016-06-03 | XA30 ---
[facility] A Service of [facility] & [facility] RADIOLOGY TEXT RESULTS PATIENT: NINFA GRANADOS LOCATION: [facility] : 31 UNIT #: [id number] AGE: [address]: Baldo Pascal MD SEX: M ORDER DR: [id number] [facility] [address] [place], [place] [address] [id number] I MR#: [id number] Acc #: [id number] NAME: NINFA GRANADOS : 1930 SEX: M STUDY DATE/TIME: 06/07/2016 8:00 UNIT: [facility] ROOM: [facility] STUDY DESCRIPTION: XA Arthrocentesis Major Joint Attending Physician: Baldo Pascal M.D. Ordering Physician: Baldo Pascal M.D. Primary Care Physician: Williams Mckeon M.D. MEDICAL IMAGING REPORT This report is preliminary unless electronic signature is present EXAM Left hip aspiration and bupivacaine injection HISTORY Left hip pain status post left hip arthroplasty PROCEDURE Attendant risks and options were discussed with Suraj, he understands and gave informed consent. The left hip area was prepped with chlorhexadine solution and a sterile drape applied. Under fluoroscopic control, a 20-gauge spinal needle was inserted into the joint and approximately 0.5 mL of fluid was aspirated and sent for cultures. 4 mL of bupivacaine was subsequently injected. A single spot radiograph was obtained. Total fluoroscopy time for the procedure 0.4 minutes. Total exposure 7 mGy air kerma standard. IMPRESSION 1. Successful aspiration of the joint yielding approximately 0.5 mL of predominant bloody fluid. 2. Injection of 4 mL of bupivacaine under fluoroscopic guidance. Dictated by... Cy Estrella M.D. THIS IS AN ELECTRONICALLY VERIFIED REPORT Cy Estrella M.D. at 06/09/2016 2:20 PM NICK/kennedy TD: 06/08/2016 00:11 JOB #: [id number] MEDICAL IMAGING REPORT Page 1 of 1 COPY
--- NOTE | ~2016-06-03 | DS ---
Unit #: [id number] #: [id number] Patient: NINFA GRANADOS [id number] [address] [place], [place] [address] [id number] I MR#: [id number] NAME: NINFA GRANADOS. ROOM: 241 Age: 85 Sex: M Admission Date: 06/03/2016 : 1930 Discharge Date: 06/09/2016 Attending Physician: Baldo Pascal M.D. Primary Care Physician: Williams Mckeon M.D. DISCHARGE SUMMARY ADMITTING DIAGNOSES Weakness, questionable TIA. DISCHARGE DIAGNOSES 1. Hypertension. 2. Hypothyroidism. 3. Gastroesophageal reflux disease. 4. Chronic kidney disease. 5. Depression. 6. Allergies. 7. Anxiety. 8. Fibromyalgia. 9. Bilateral lymphedema. CONSULTANTS Dr. Mckeon. PROCEDURES DONE Aspiration of the left hip and it was 0.5 mL of bloody fluid without any septic joint infection. HISTORY OF PRESENTING ILLNESS Patient is an 85-year-old, man with a past medical history of hypertension, hypothyroidism, and chronic kidney disease who lives with his daughter. Was admitted on the due to generalized weakness. Initially, there was a question of lightheadedness, dizziness, and marked deviation. The symptoms are resolved when he presented to the emergency room. HOSPITAL COURSE He was doing clinically better. PT and OT were consulted. He was complaining of pain in the left hip where he had a recent arthroplasty done. Dr. Mckeon evaluated the patient and the x-rays showed unipolar left hip prosthesis and there is an acute or subacute fracture involving the remaining superior aspect of the left greater trochanter along the lateral margin of prosthesis. I spoke with Dr. Mckeon and he suggested conservative management with a concern for knee abscess source of septic arthritis and fluid was drained, which was bloody fluid, 0.5 mL, and the cultures did not show any grown. The Gram stain was bloody with occasional WBC. Please note his procalcitonin was low and I spoke with Dr. Mckeon. He doubts any infection (1) and he recommended no antimicrobials at this point. Patient was seen by PT and OT. They recommended a subacute rehab placement. Patient refused to go to rehab. He wants to go home with home health care and he wants to live with his Unit #: [id number] #: [id number] Patient: NINFA GRANADOS daughter and case specialist is helping us arrange for the discharge. PHYSICAL EXAMINATION On the day of the discharge, his physical examination: VITAL SIGNS: Temperature 98.2, pulse 70, respirations 20, and blood pressure 174/81. GENERAL APPEARANCE: Patient is alert and oriented x3 and lying in the bed. No acute distress. HEENT: Normocephalic and atraumatic. No icterus. PERRLA. Extraocular movements are intact. NECK: Supple. No JVD. HEART: S1 and S2 regular rate and rhythm. ABDOMEN: Soft and nontender. EXTREMITIES: Mild edema. Normal peripheral pulses. DISCHARGE MEDICATIONS His discharge medications include: 1. Combivent 3 mL inhalation 4 times a day. 2. Zoloft 50 mg at bedtime. 3. Zyrtec 10 mg daily. 4. KlonoPIN 0.25 mg p.o. at bedtime p.r.n. insomnia. 5. Bisacodyl 5 mg p.o. b.i.d. p.r.n. for constipation. 6. Senokot p.o. twice a day. 7. Aspirin 81 mg daily. 8. Lortab 5/325 mg 1 tab p.o. q.4 p.r.n. for pain. 9. Prilosec 40 mg daily. 10. Calcium carbonate 500 mg p.o. twice a day. 11. Synthroid 100 mcg p.o. daily. DISCHARGE INSTRUCTIONS He is instructed to follow up with his primary care in 1-2 weeks. TOTAL TIME SPENT ON HIS CARE Thirty-five minutes. Dictated by... Yaz Harrell/micheal TD: 06/10/2016 06:34 JOB #: [id number] DISCHARGE SUMMARY Page 1 of 1 X X DISCHARGE SUMMARY
--- NOTE | ~2016-06-03 | CR58 ---
[facility] A Service of [facility] & [facility] RADIOLOGY TEXT RESULTS PATIENT: NINFA GRANADOS LOCATION: A 241 : 31 UNIT #: [id number] AGE: [address]: Baldo Pascal MD SEX: M ORDER DR: [id number] [facility] [address] [place], [place] [address] [id number] I MR#: [id number] Acc #: [id number] NAME: NINFA GRANADOS : 1930 SEX: M STUDY DATE/TIME: 06/06/2016 16:23 UNIT: [facility] ROOM: [facility] STUDY DESCRIPTION: CR Cervical Spine 2 or 3 Views Attending Physician: Baldo Pascal M.D. Ordering Physician: Baldo Pascal M.D. Primary Care Physician: Williams Mckeon M.D. MEDICAL IMAGING REPORT This report is preliminary unless electronic signature is present EXAM Cervical spine series in 7 views, 06/06/2016 HISTORY Neck pain for 6 weeks. FINDINGS There are changes of discogenic disease but normal alignment. There is no apparent fracture for prevertebral swelling. Atherosclerotic vascular calcifications are noted at the carotid bifurcations. IMPRESSION Mild degenerative changes without acute abnormality. Dictated by... Salvatore Barillas M.D. THIS IS AN ELECTRONICALLY VERIFIED REPORT Salvatore Barillas M.D. at 06/08/2016 5:07 PM TEV/belinda TD: 06/06/2016 21:37 JOB #: [id number] MEDICAL IMAGING REPORT Page 1 of 1 COPY
--- NOTE | ~2016-06-03 | HP ---
Unit #: [id number] #: [id number] Patient: NINFA GRANADOS [id number] [address] [address] [id number] I MR#: [id number] NAME: NINFA GRANADOS ROOM: 241 Age: 85 Sex: M Admission Date: 06/03/2016 : 1930 Attending Physician: Sheree Jurado M.D. Primary Care Physician: Williams Mckeon M.D. HISTORY AND PHYSICAL ADDENDUM NOTE This is an addendum for J# [id number]. PAST SURGICAL HISTORY The patient's past surgical history includes a pilonidal cyst removal, hemorrhoidectomy, cholecystectomy, colonoscopy with polyps removed, cataract extraction and inguinal hernia repair. Dictated by Yaz Wagner/arina TD: 06/03/2016 22:41 JOB #: [id number] HISTORY AND PHYSICAL Page 1 of 1 X Sheree Jurado MD X HISTORY AND PHYSICAL
--- NOTE | ~2016-06-03 | A ---
[facility] DATE: 06/04/16 Patient: NINFA GRANADOS Physician: DARRIUS Address: [address] [place] [address] ROAD Room/Bed: [address] [place] [address], Zip: [place] [address] Admit Date: 06/03/16 Date of : 31 Height: 6 0 Weight: 179 81.19 NUTRITIONAL ASSESSMENT: REASON: 3 NUTRITION RISK PT RE: 10# WEIGHT LOSS PT IS 85 Y.O. MALE ADMITTED FOR POSSIBLE TIA, WEAKNESS PMH: HTN, GERD, ANXIETY, DEPRESSION, FIBROMYALAGIA, CKD, HYPOTHYROIDISM, CHOLY Anthropometrics: 6'0", WT: 178# (81 KG), BMI: 24.1 Labs: K+:3.3, BUN: 26, CREAT: 1.5, CA+:8.2, GFR: 42.2 Meds: TUMS, PROTONIX, NACL, SYNTHROID I/O & Bowel function: 1200/- Skin Integrity: DRY SKIN NOTED ALL OVER BODY Estimated Nutrition Needs: INCREASED NUTRIENT NEEDS 2' ?WEIGHT LOSS NOTED Assessment: CHART REVIEWED AND EVENTS NOTED. PT SEEN FOR WEIGHT LOSS. PT REPORTS FAIR/GOOD PO INTAKE AND APPETITE PRIOR TO ADMIT, NO C/O N/V/D. PT DENIES ANY CHEWING OR SWALLOWING DIFFICULTIES. OF NOTE, PT SEEMED FORGETFUL AT TIME OF VISIT. PT DENIES ANY RECENT WEIGHT LOSS, NOTES UBW IS ~178#. PER [facility], PT WEIGHED ~186# BACK IN APRIL AND MAY 2016. THIS RD ENCOURAGED ADEQUATE KCAL AND PROTEIN INTAKE, PT AGREED TO ENSURE SHAKES BID. PT NOT APPROPRIATE FOR DIET EDUCATION AT THIS TIME. RD TO FOLLOW. SEE RECOMMENDATIONS BELOW. Dx: DECREASED NUTRIENT INTAKE R/T ADVANCED AGE, PMH AEB ?WEIGHT LOSS NOTED SINCE APRIL AND MAY 2016. Intervention: 1. HH DIET 2. ENSURE SHAKES BID Monitoring, Evaluation and Goals: 1. PO INTAKE; CONSUME >50% OF MEALS AND SUPPLEMENTS W/NO C/O N/V/D 2. WEIGHTS; PREVENT FURTHER UNINTENTIONAL WEIGHT LOSS 3. LABS; WNL MONITOR: -PO INTAKE/APPETITE -SUPPLEMENT INTAKE -WEIGHTS [facility] DATE: 06/04/16 Patient: NINFA GRANADOS Physician: DARRIUS Address: [address] [place] [address] ROAD Room/Bed: [address] [place] [address], Zip: [place] [address] Admit Date: 06/03/16 Date of : [birth year] Height: 6 0 Weight: 179 81.19 Recommendations: 1. PLEASE ORDER VANILLA ENSURE SHAKES BID W/MEALS 2. IF PO INTAKE <50%, RECOMMEND TO CHANGE CURRENT DIET ORDER TO REGULAR 3. ENCOURAGE PO AND SUPPLEMENT INTAKE 4. CONSIDER ADDING MVI W/MINERAL DAILY 2' ADVANCED AGE RD WILL F/U PER PROTOCOL PT IS MILD/MODERATELY COMPROMISED Respectfully, LORE DURANT MS, RD, LD [employer] [facility] cc: client file
--- NOTE | ~2016-06-03 | HP ---
Unit #: [id number] #: [id number] Patient: NINFA GRANADOS [id number] [address] [place], [place] [address] [id number] I MR#: [id number] NAME: NINFA GRANADOS. ROOM: 241 Age: 85 Sex: M Admission Date: 06/03/2016 : 1930 Attending Physician: Sheree Jurado M.D. Primary Care Physician: Williams Mckeon M.D. HISTORY AND PHYSICAL CHIEF COMPLAINT Intractable weakness. HISTORY OF PRESENT ILLNESS This is an 85-year-old male who basically has been having generalized weakness for the past few days. He went visiting his family members and he realized that he was unable to walk. Visiting nurses saw him and it seems as he had a near syncopal episode. He was seen and evaluated in the emergency room and evaluated for a possible TIA. There was no loss of consciousness. There was some sort of questionable facial droop which was said to have resolved long before presenting in the emergency room. He denies any chest pain, headache, or shortness of breath. Denies any dysuria or frequency. Denies any melena, hematochezia, hemoptysis or hematemesis. PAST MEDICAL HISTORY Significant for: 1. Hypertension. 2. Hypothyroidism. 3. GERD. 4. Chronic kidney disease. 5. Depression. 6. Seasonal allergies. 7. Anxiety. 8. Fibromyalgia. 9. Bilateral lymphedema. PAST SURGICAL HISTORY 1. Pilonidal cyst removed. 2. Abdominal surgery. 3. Hemorrhoidectomy. 4. Cholecystectomy. 5. Colonoscopy with polyps removed. 6. Cataract extraction. 7. Inguinal hernia. HOME MEDICATIONS Include: 1. Combivent mini nebs two puffs inhaled q.i.d. 2. Zoloft 50 mg p.o. h.s. 3. Zyrtec 10 mg p.o. daily. 4. Klonopin 0.25 mg p.o. h.s. 5. Senokot one tablet p.o. daily. Unit #: [id number] #: [id number] Patient: NINFA GRANADOS 6. Bisacodyl 5 mg b.i.d. 7. Aspirin 81 mg p.o. daily. 8. Lortab 5/325 one tablet p.o. q.4 h. 9. Prilosec 40 mg p.o. daily. 10. Os-Dandy 500 mg p.o. b.i.d. 11. Levothyroxine sodium 100 mcg p.o. daily. ALLERGIES 1. Salicylates. 2. NSAIDs. SOCIAL HISTORY Patient lives alone. Continues to smoke. FAMILY HISTORY Significant for coronary artery disease. REVIEW OF SYSTEMS A complete 10-point review of systems has been done and pertinent positives noted. PHYSICAL EXAMINATION VITAL SIGNS: Blood pressure 120/84, pulse 90, respiratory rate 18, temperature 98.7. GENERAL: He was comfortable, not in distress. HEENT: Pupils equal and reactive to light and accommodation. NECK: Supple without thyromegaly. LUNGS: Reduced breath sounds in the lung bases posteriorly. HEART: First and second heart sounds only. EXTREMITIES: 1+ bilateral lower extremity edema. NEUROLOGIC: Awake and alert. Cranial nerves II-XII are grossly intact. He is extremely hard of hearing. He was weak in his lower extremities. I did not observe his gait. DIAGNOSTIC STUDIES LABORATORY: Chemistries glucose 107, BUN 27, creatinine 1.6, sodium 137, potassium 3.5, chloride 102, bicarbonate 25. CBC with WBC 10.4, hemoglobin 11.2, hematocrit 34.2, platelet count 156. Urinalysis specific gravity of 1.018. ASSESSMENT AND PLAN 1. Generalized weakness and presyncope. The patient did not actually have syncope. I am not exactly sure of the significance of this. Patient's creatinine is 1.6 which is not too far from his baseline. His hemoglobin was 11.2 which is better than it was back on 05/09/2016. Will get PT/OT evaluation. 2. Hypotension. He had a significant drop in his blood pressure when vital signs were done in the ER. I will put him on some LR about 100 mL per hour and repeat a CBC and BMP in the morning. I will repeat orthostatics in the morning. 3. Hypertension. 4. Hypothyroidism. 5. Chronic kidney disease. 6. Will get physical therapy and occupational therapy to see the patient. Unit #: [id number] #: [id number] Patient: JUAN LUISSUELLEN FraserJada Samayoa Dictated by Yaz Wagner/belinda TD: 06/03/2016 22:52 JOB #: [id number] HISTORY AND PHYSICAL Page 1 of 1 X Sheree Jurado MD HISTORY AND PHYSICAL
--- NOTE | ~2016-06-03 | CR150 ---
[facility] A Service of [facility] & [facility] RADIOLOGY TEXT RESULTS PATIENT: NINFA GRANADOS LOCATION: [facility] : 31 UNIT #: [id number] AGE: [address]: Baldo Pascal MD SEX: M ORDER DR: [id number] [facility] [address] [place], [place] [address] [id number] I MR#: [id number] Acc #: [id number] NAME: NINFA GRANADOS : 1930 SEX: M STUDY DATE/TIME: 06/05/2016 10:30 UNIT: [facility] ROOM: [facility] STUDY DESCRIPTION: CR Hip Min 2 Views Lt Attending Physician: Sheree Jurado M.D. Ordering Physician: Sheree Jurado M.D. Primary Care Physician: Williams Mckeon M.D. MEDICAL IMAGING REPORT This report is preliminary unless electronic signature is present EXAM Left hip, 2 views, 06/05/2016. HISTORY Left hip pain for 6 weeks status post fall 5 weeks ago. FINDINGS 2 views of the left hip demonstrate minimally-displaced fracture involving the superior aspect of the left greater trochanter along the lateral margin of the unipolar prosthesis. No other fracture or dislocation is seen. The prosthesis appears well seated. The bones are normally mineralized. There is no soft tissue abnormality. IMPRESSION Unipolar left hip prosthesis. There is an acute or subacute fracture involving the remaining superior aspect of the left greater trochanter along the lateral margin of the prosthesis. Dictated by... Tello Chase M.D. THIS IS AN ELECTRONICALLY VERIFIED REPORT Tello Chase M.D. at 06/06/2016 10:25 AM VERONICA/andriy TD: 06/05/2016 15:09 JOB #: [id number] MEDICAL IMAGING REPORT Page 1 of 1 COPY
--- NOTE | ~2016-06-03 | CT71 ---
[facility] A Service of [facility] RADIOLOGY TEXT RESULTS PATIENT: NINFA GRANADOS LOCATION: [facility] : 31 UNIT #: [id number] AGE: [address]: Sheree Jurado MD SEX: M ORDER DR: [id number] [facility] [address] [place], [place] [address] [id number] I MR#: [id number] Acc #: [id number] NAME: NINFA GRANADOS. : 1930 SEX: M STUDY DATE/TIME: 06/03/2016 14:50 UNIT: [facility] ROOM: [address] STUDY DESCRIPTION: CT Head Wo Contrast Attending Physician: Sheree Jurado M.D. Ordering Physician: Glenroy Rodgers M.D. Primary Care Physician: Williams Mckeon M.D. MEDICAL IMAGING REPORT This report is preliminary unless electronic signature is present EXAM CT brain without contrast media. HISTORY Weakness, facial droop beginning this morning from the halfway. TECHNIQUE Transaxial imaging of the brain was performed without IV contrast media. This CT exam was performed with one or more of the following radiation dose reduction techniques: automatic exposure control, adjustment of mA and/or kV according to patient size, and iterative reconstruction. COMPARISON The study is compared directly to the last study of 08/13/2014. FINDINGS There is marked enlargement of the ventricles and CSF-containing spaces diffusely. There are atherosclerotic calcifications in the carotid siphons. No mass lesions, mass effect, evidence of acute hemorrhage or edema. No intra- or extraaxial fluid collections are seen. Bone windows are reviewed. The patient does have mild mucosal disease in the ethmoid sinuses. CONCLUSION 1. Generalized atrophy, unchanged. 2. Atherosclerotic disease of the carotid siphons. 3. Mild mucosal disease in the ethmoid air cells. No acute findings. Dictated by... Cy Estrella M.D. [facility] A Service [facility] RADIOLOGY TEXT RESULTS PATIENT: NINFA GRANADOS LOCATION: [facility] : 32 UNIT #: [id number] AGE: [address]: Sheree Jurado MD SEX: M ORDER DR: THIS IS AN ELECTRONICALLY VERIFIED REPORT Cy Estrella M.D. at 06/04/2016 10:56 AM Marie TD: 06/03/2016 18:13 JOB #: [id number] MEDICAL IMAGING REPORT Page 1 of 1 COPY
[2016-06-03 14:44] LABS: POC - CKMB 1.6 ng/mL (0.0-7.9); POC - TROPONIN <0.05 ng/mL (<=0.05)
[2016-06-03 14:49] LABS: BASOPHIL# 0.1 X10e3 (0-0.3); BASOPHIL% 0.8 % (0-2.5); EOSINOPHIL# 0.2 X10e3 (0-0.7); EOSINOPHIL% 1.8 % (0.0-7.0); HEMATOCRIT 37.5 % (38.0-50.0); HEMOGLOBIN 12.2 gm/dL (13.0-16.0); LYMPHOCYTE# 1.6 X10e3 (1.0-3.5); LYMPHOCYTE% 12.6 % (17.0-45.0); MEAN CELL VOLUME 93.4 FL (83-96); MEAN CORPUSCULAR HEMOGLOBIN 30.5 PG (28-34); MEAN CORPUSCULAR HGB CONC 32.6 g/dL (30-36); MEAN PLATELET VOLUME 9.2 FL (6.5-11.5); MONOCYTE# 1.5 X10e3 (0-1.0); MONOCYTE% 11.8 % (3.0-12.0); NEUTROPHIL# 9.4 X10e3 (1.5-7.1); PLATELET COUNT 166 X10e3 (140-420); RED BLOOD COUNT 4.01 X10e (3.90-5.60); WHITE BLOOD COUNT 12.9 X10e3 (4.0-10.5)
[2016-06-03 14:52] LABS: DIFF IND NO
[2016-06-03 15:05] LABS: INR 1.1; PARTIAL THROMBOPLASTIN TIME 26.4 SECONDS (23.5-31.3); PROTHROMBIN TIME (PATIENT) 11.2 SECONDS (9.6-11.5)
[2016-06-03 15:14] LABS: ALBUMIN SERUM 3.6 g/dL (3.5-5.0); BILIRUBIN, DIRECT 0.2 mg/dL (0.0-0.2); BILIRUBIN,INDIRECT 0.5 mg/dL (0.0-0.9); BILIRUBIN,TOTAL 0.7 mg/dL (0.2-2.0); BUN/CREATININE RATIO 16.47; CALCIUM SERUM 8.9 mg/dL (8.4-10.2); CREATININE SERUM 1.7 mg/dL (0.6-1.4); GLOM FILT RATE Estimated 36.2 mL/min (>60); POTASSIUM 3.7 mmol/L (3.5-5.1); PROTEIN TOTAL SERUM 7.2 g/dL (6.0-8.3)
[2016-06-03 15:59] LABS: URINE APPEARANCE CLEAR; URINE BILIRUBIN NEG (NEG); URINE BLOOD NEG (NEG); URINE COLOR DK YELLOW; URINE GLUCOSE NEG (NEG); URINE KETONE NEG (NEG); URINE LEUKOCYTE ESTERASE NEG (NEG); URINE NITRATE NEG (NEG); URINE PH 5.5 (5-8); URINE PROTEIN NEG (NEG); URINE SPECIFIC GRAVITY 1.018 (1.003-1.035); URINE UROBILINOGEN 0.2 MG/DL (NEG)
[2016-06-03 16:09] LABS: CULTURE INDICATED? NO; URINE SOURCE CATH
[2016-06-03] MEDS ORDERED: COMBIVENT MININEB INH (16:59)
[2016-06-03] MEDS ORDERED: KLONOPIN PO (17:00)
[2016-06-03] MEDS ORDERED: ZOLOFT50 MG PO (17:00)
[2016-06-03] MEDS ORDERED: ZYRTEC10 M1 PO (17:00)
[2016-06-03] MEDS ORDERED: ASPIRIN81 MG PO (17:01)
[2016-06-03] MEDS ORDERED: SENNA PO (17:01)
[2016-06-03] MEDS ORDERED: BISACODYL5 M2 PO (17:01)
[2016-06-03] MEDS ORDERED: LORCET 5-325 M1 EACH PO (17:03)
[2016-06-03] MEDS ORDERED: LEVOTHYROXINE100 MCG PO (17:04)
[2016-06-03] MEDS ORDERED: OS-CAL 500500 MG PO (17:04)
[2016-06-03] MEDS ORDERED: PRILOSEC PO (17:04)
[2016-06-03 17:44] LABS: BASOPHIL# 0.1 X10e3 (0-0.3); BASOPHIL% 0.6 % (0-2.5); EOSINOPHIL# 0.1 X10e3 (0-0.7); EOSINOPHIL% 0.7 % (0.0-7.0); HEMATOCRIT 34.2 % (38.0-50.0); HEMOGLOBIN 11.2 gm/dL (13.0-16.0); LYMPHOCYTE% 9.9 % (17.0-45.0); MEAN CELL VOLUME 93.2 FL (83-96); MEAN CORPUSCULAR HEMOGLOBIN 30.6 PG (28-34); MEAN CORPUSCULAR HGB CONC 32.8 g/dL (30-36); MONOCYTE# 1.1 X10e3 (0-1.0); MONOCYTE% 10.4 % (3.0-12.0); NEUTROPHIL# 8.2 X10e3 (1.5-7.1); NEUTROPHIL% 78.4 % (40-75); PLATELET COUNT 156 X10e3 (140-420); RED BLOOD COUNT 3.67 X10e (3.90-5.60); RED CELL DISTRIBUTION WIDTH 14.7 % (11.0-15.5); WHITE BLOOD COUNT 10.4 X10e3 (4.0-10.5)
[2016-06-03 17:48] LABS: DIFF IND NO
[2016-06-03 18:05] LABS: BUN/CREATININE RATIO 16.87; CALCIUM SERUM 8.5 mg/dL (8.4-10.2); CREATININE SERUM 1.6 mg/dL (0.6-1.4); POTASSIUM 3.5 mmol/L (3.5-5.1)
[2016-06-04 05:25] LABS: BASOPHIL# 0.1 X10e3 (0-0.3); BASOPHIL% 1.2 % (0-2.5); EOSINOPHIL# 0.2 X10e3 (0-0.7); EOSINOPHIL% 1.9 % (0.0-7.0); HEMATOCRIT 31.1 % (38.0-50.0); HEMOGLOBIN 10.3 gm/dL (13.0-16.0); LYMPHOCYTE# 1.9 X10e3 (1.0-3.5); LYMPHOCYTE% 23.2 % (17.0-45.0); MEAN CELL VOLUME 92.2 FL (83-96); MEAN CORPUSCULAR HEMOGLOBIN 30.5 PG (28-34); MEAN CORPUSCULAR HGB CONC 33.1 g/dL (30-36); MEAN PLATELET VOLUME 9.3 FL (6.5-11.5); MONOCYTE# 1.3 X10e3 (0-1.0); NEUTROPHIL# 4.9 X10e3 (1.5-7.1); NEUTROPHIL% 58.7 % (40-75); PLATELET COUNT 142 X10e3 (140-420); RED BLOOD COUNT 3.37 X10e (3.90-5.60); RED CELL DISTRIBUTION WIDTH 14.5 % (11.0-15.5); WHITE BLOOD COUNT 8.3 X10e3 (4.0-10.5)
[2016-06-04 05:26] LABS: DIFF IND NO
[2016-06-04 06:20] LABS: BUN/CREATININE RATIO 17.33; CALCIUM SERUM 8.2 mg/dL (8.4-10.2); CREATININE SERUM 1.5 mg/dL (0.6-1.4); GLOM FILT RATE Estimated 42.2 mL/min (>60); POTASSIUM 3.3 mmol/L (3.5-5.1)
[2016-06-06 06:58] LABS: HEMOGLOBIN 10.8 gm/dL (13.0-16.0); MEAN CELL VOLUME 90.9 FL (83-96); MEAN CORPUSCULAR HEMOGLOBIN 30.5 PG (28-34); MEAN CORPUSCULAR HGB CONC 33.6 g/dL (30-36); MEAN PLATELET VOLUME 9.8 FL (6.5-11.5); RED BLOOD COUNT 3.53 X10e (3.90-5.60); RED CELL DISTRIBUTION WIDTH 14.3 % (11.0-15.5); WHITE BLOOD COUNT 7.9 X10e3 (4.0-10.5)
[2016-06-06 07:26] LABS: BUN/CREATININE RATIO 11.42; CALCIUM SERUM 8.5 mg/dL (8.4-10.2); CREATININE SERUM 1.4 mg/dL (0.6-1.4); GLOM FILT RATE Estimated 45.8 mL/min (>60); MAGNESIUM 1.6 mg/dL (1.6-3.0); POTASSIUM 3.5 mmol/L (3.5-5.1)
[2016-06-07 07:48] LABS: BASOPHIL# 0.1 X10e3 (0-0.3); BASOPHIL% 2.1 % (0-2.5); EOSINOPHIL# 0.3 X10e3 (0-0.7); EOSINOPHIL% 4.4 % (0.0-7.0); HEMOGLOBIN 10.7 gm/dL (13.0-16.0); LYMPHOCYTE# 1.6 X10e3 (1.0-3.5); LYMPHOCYTE% 24.9 % (17.0-45.0); MEAN CELL VOLUME 91.1 FL (83-96); MEAN CORPUSCULAR HEMOGLOBIN 30.5 PG (28-34); MEAN CORPUSCULAR HGB CONC 33.5 g/dL (30-36); MEAN PLATELET VOLUME 9.4 FL (6.5-11.5); MONOCYTE# 0.8 X10e3 (0-1.0); MONOCYTE% 11.9 % (3.0-12.0); NEUTROPHIL# 3.6 X10e3 (1.5-7.1); NEUTROPHIL% 56.7 % (40-75); PLATELET COUNT 184 X10e3 (140-420); RED BLOOD COUNT 3.51 X10e (3.90-5.60); RED CELL DISTRIBUTION WIDTH 14.4 % (11.0-15.5); WHITE BLOOD COUNT 6.4 X10e3 (4.0-10.5)
[2016-06-07 07:50] LABS: DIFF IND NO
[2016-06-07 08:18] LABS: BUN/CREATININE RATIO 11.53; CALCIUM SERUM 8.4 mg/dL (8.4-10.2); CREATININE SERUM 1.3 mg/dL (0.6-1.4); GLOM FILT RATE Estimated 50.1 mL/min (>60); MAGNESIUM 1.8 mg/dL (1.6-3.0); POTASSIUM 3.8 mmol/L (3.5-5.1)
[2016-06-08 08:25] LABS: HEMATOCRIT 30.8 % (38.0-50.0); HEMOGLOBIN 10.2 gm/dL (13.0-16.0); MEAN CELL VOLUME 90.9 FL (83-96); MEAN CORPUSCULAR HEMOGLOBIN 30.2 PG (28-34); MEAN CORPUSCULAR HGB CONC 33.2 g/dL (30-36); MEAN PLATELET VOLUME 9.2 FL (6.5-11.5); RED BLOOD COUNT 3.39 X10e (3.90-5.60); RED CELL DISTRIBUTION WIDTH 14.2 % (11.0-15.5); WHITE BLOOD COUNT 7.6 X10e3 (4.0-10.5)
[2016-06-08 09:07] LABS: BUN/CREATININE RATIO 11.42; CALCIUM SERUM 8.2 mg/dL (8.4-10.2); CREATININE SERUM 1.4 mg/dL (0.6-1.4); GLOM FILT RATE Estimated 45.8 mL/min (>60); MAGNESIUM 1.8 mg/dL (1.6-3.0); POTASSIUM 3.5 mmol/L (3.5-5.1)
[2016-06-08] MEDS ORDERED: LORTAB 5-325 M1 EACH PO (16:21)
== END 2016-06-09 07:14 | disposition home health service (06) | DRG 556 ==
LOC: CED 14:15 → CEDOF 16:55 → C2A 20:19
PROVIDERS: Emergency Medicine; Family Medicine; Internal Medicine
PROC: 0SBB3ZX Excision of Left Hip Joint, Percutaneous Approach, Diagnostic (ICD-10-PCS; principal; 2016-06-06)
DX: M25.552 Pain in left hip (principal); M97.02XA Periprosthetic fracture around internal prosthetic left hip joint, initial encounter; I12.9 Hypertensive chronic kidney disease with stage 1 through stage 4 chronic kidney disease, or unspecified chronic kidney disease; R53.1 Weakness; N18.9 Chronic kidney disease, unspecified; K21.9 Gastro-esophageal reflux disease without esophagitis; E03.9 Hypothyroidism, unspecified; F32.9 Major depressive disorder, single episode, unspecified; F41.9 Anxiety disorder, unspecified; M79.7 Fibromyalgia; I89.0 Lymphedema, not elsewhere classified; Z90.49 Acquired absence of other specified parts of digestive tract; Z98.49 Cataract extraction status, unspecified eye; Z79.82 Long term (current) use of aspirin; I95.1 Orthostatic hypotension; Z96.642 Presence of left artificial hip joint; M54.2 Cervicalgia; W19.XXXA Unspecified fall, initial encounter
CPT/HCPCS: 36415; 70450; 71010; 72040; 73502; 77002; 80048; 80076; 81003; 82308; 82553; 82947; 83735; 84132; 84443; 84484; 85025; 85027; 85610; 85652; 85730; 86140; 87070; 87205; 93005; 94760; 96360; 97110; 97116; 97163; 97167; 97530; 97535; 99285; G8978-GP; G8979-GP; G8987-GO; G8988-GO; J3475

== ENCOUNTER 2016-06-23 19:01 | Inpatient (IN) | payer MEDICARE ==
--- NOTE | ~2016-06-23 | A ---
[facility] Nutrition Therapy DATE: 06/28/16 Patient: NINFA GRANADOS Physician: JAJA Address: [address] [place] [address] Room/Bed: [address] [place] [address], Zip: [place] [address] Admit Date: 06/23/16 Date of : 31 Height: 5 10 Weight: 178 81.19 NUTRITIONAL ASSESSMENT: REASON: NUTRITION CONSULT 85 yo male admitted for weakness PMH: CKD stage 3, HTN, dementia, hypothyroidism, GERD, anxiety, depression, fibromyalgia, cholecystectomy Anthropometrics: Ht: 5'10" Wt: 81.2 kg BMI: 25.7 Labs: Gluc 114 GFR 55.2 Meds: Zofran, protonix, Os-mary jo +D, senokot, synthroid, bisacodyl, NaCl I/O & Bowel function: 830/204, last BM 06/27 Skin Integrity: Puncture procedure site left knee Closed surgical incision left knee Edema: left knee- generalized Diet: heart healthy Assessment: Chart reviewed, events noted. Pt is s/p left knee surgery. Mild protein-calorie malnutrition noted in chart. RD spoke with the pt at bedside. MANAGER BUILDING was in room, and reports that the pt consumed 100% of his breakfast and lunch, both of which consisted of oatmeal and coffee. Pt reports that he has a good appetite, and thinks he has probably lost ~10# since he has been in and out of the hospital. Pt reports a usual body weight of ~176#, current weight in [facility] is 178#. RD encouraged balanced intake of meals, and suggested that the pt include something with protein for lunch and dinner. Pt agreed, and is agreeable to trying Magic Cup supplements. Dx: Potential for inadequate nutrient intake RT advanced age AEB pt report of weight loss, mild protein-calorie malnutrition noted by MD. Intervention: 1. Continue diet, liberalize if PO intake declines 2. Magic Cup BID Monitoring, Evaluation and Goals: 1. Oral intake; tolerate >50%-75% of meals and supplements 2. Weight; monitor, preserve lean body mass [facility] Nutrition Therapy DATE: 06/28/16 Patient: NINFA GRANADOS Physician: JAJA Address: [address] [place] [address] Room/Bed: [address] [place] [address], Zip: [place] [id number] Admit Date: 06/23/16 Date of : 31 Height: 5 10 Weight: 178 81.19 3. Skin; promote healing Recommendations: 1. Liberalize to regular diet due to advanced age, noted weight loss and possible PCM. 2. Magic Cup vanilla BID for supplemental nutrition. Pt is at mild nutritional risk. RD will follow hospital course per protocol. Respectfully, KRISTY DRUMMOND RD, LD Food and Nutritional Services [facility] cc: client file
--- NOTE | ~2016-06-23 | OR ---
Unit #: [id number] #: [id number] Patient: NINFA GRANADOS [id number] [address] [place], [place] [address] [id number] I MR#: [id number] NAME: NINFA GRANADOS ROOM: [facility] Date of Procedure: 06/25/2016 Admission Date: 06/23/2016 Surgeon: Sterling Becerra M.D. : 1930 Attending Physician: Baldo Pascal M.D. Primary Care Physician: Williams Mckeon M.D. OPERATIVE REPORT PREOPERATIVE DIAGNOSIS Painful and swollen left knee. POSTOPERATIVE DIAGNOSIS Painful and swollen left knee. PROCEDURE PERFORMED Aspiration of left knee under local anesthesia. DESCRIPTION OF PROCEDURE The patient was seen at the bedside. The left knee was prepped and draped. We then numbed the skin with 1% plain Xylocaine. An 18-gauge needle was used to enter the left knee through a superolateral approach and we were able to aspirate 60 mL of clear fluid. We then injected 80 mg of Depo-Medrol. Sterile dressing was applied, and the patient tolerated the procedure well. Dictated by... Yaz Carrillo/damon TD: 06/25/2016 21:28 JOB #: [id number] OPERATIVE REPORT Page 1 of 1 X Sterling Becerra MD X PROCEDURE OPERATIVE NOTE
--- NOTE | ~2016-06-23 | CR169 ---
[facility] A Service [facility] RADIOLOGY TEXT RESULTS PATIENT: NINFA GRANADOS LOCATION: [facility] : 31 UNIT #: [id number] AGE: [address]: Mariola Zacarias MD SEX: M ORDER DR: [id number] [place], [place] [address] [id number] E MR#: [id number] #: [id number] NAME: NINFA GRANADOS : 1930 SEX: M STUDY DATE/TIME: 06/23/2016 19:00 UNIT: [facility] ROOM: STUDY DESCRIPTION: CR Knee 2 Views Lt Attending Physician: Mariola Zacarias M.D. Ordering Physician: Mariola Zacarias M.D. Primary Care Physician: Williams Mckeon M.D. MEDICAL IMAGING REPORT This report is preliminary unless electronic signature is present EXAM Left knee 2 views HISTORY Mid pain today. No injury. FINDINGS 2 views of the left knee demonstrate a moderately large suprapatellar effusion, new compared to 03/15/2016. Generalized demineralization. Moderate degenerative joint space narrowing in the medial compartment and mild medial subluxation of the femur on the tibia. No fracture. Arterial calcifications. IMPRESSION 1. Moderately large suprapatellar effusion. 2. Generalized demineralization. 3. No fracture. 4. Moderate degenerative joint space narrowing in the medial compartment. Dictated by... Medardo De M.D. THIS IS AN ELECTRONICALLY VERIFIED REPORT Medardo De M.D. at 06/23/2016 8:51 PM DFL/rnr TD: 06/23/2016 19:25 JOB #: [id number] [facility] A Service [facility] RADIOLOGY TEXT RESULTS PATIENT: NINFA GRANADOS LOCATION: [facility] : 31 UNIT #: [id number] AGE: [address]: Mariola Zacarias MD SEX: M ORDER DR: MEDICAL IMAGING REPORT Page 1 of 1 COPY
--- NOTE | ~2016-06-23 | HP ---
Unit #: [id number] #: [id number] Patient: NINFA GRANADOS [id number] [address] [place], [place] [address] [id number] MR#: [id number] NAME: NINFA GRANADOS. ROOM: 6[address]32 Age: 85 Sex: M Admission Date: 06/23/2016 : 1930 Attending Physician: Brenda Britton M.D. Primary Care Physician: Williams Mckeon M.D. HISTORY AND PHYSICAL CHIEF COMPLAINT Weakness, lightheadedness, and orthostatic. HISTORY This pleasantly confused, 85-year-old male with dementia, hypothyroidism, and chronic kidney disease is admitted for weakness. The patient, himself, is a very poor historian. I talked with the ER physician. The patient lives with family. Today, he was wobbly, could not stand, and was weak. Patient does admit to feeling lightheaded with standing. In the ER, he was orthostatic. His workup is fairly unremarkable, except that his chronic kidney disease looks, perhaps, a little bit worse. He states that had decreased p.o. intake recently. Family pointed out that the patient has chronic left knee pain, which is worse. Therefore, an x-ray was performed of the left knee showing a moderately large suprapatellar effusion and moderate DJD. In the ER, he is orthostatic. His systolic blood pressure was 110 lying down and 81 standing. He had been admitted 05/05/2016 for a left hip fracture requiring a left total hip replacement. He was readmitted 06/03-06/08/2016 for weakness. PAST MEDICAL HISTORY 1. Hypothyroidism. 2. GERD. 3. Dementia. 4. Chronic kidney disease with a baseline creatinine of about 1.5. 5. Depression. 6. Seasonal allergies. 7. Anxiety. 8. Fibromyalgia. 9. Echo, 2010, showing normal LV function with impaired relaxation. Trace AR. Negative Cardiolite stress test at that time. 10. Bilateral lymphedema. 11. Pilonidal cyst excised. 12. Left total hip replacement, 05/05/2016, complicated by blood loss and mild left hip hematoma. 13. Abdominal surgery of some type. 14. Hemorrhoidectomy. 15. Cholecystectomy. 16. Colonoscopy with polyps removed. 17. Cataract extraction. 18. Inguinal hernia repair. ALLERGIES Unit #: [id number] #: [id number] Patient: NINFA GRANADOS. CURRENT HOME MEDICATIONS 1. Combivent 2 puffs q.i.d. 2. Zoloft 50 mg q.h.s. 3. Zyrtec 10 mg daily. 4. KlonoPIN 0.25 mg q.h.s. as needed. 5. Senokot b.i.d. 6. Dulcolax 5 mg b.i.d. p.r.n. 7. Aspirin 81 mg daily. 8. Lortab 5/325 q.4 hours as needed. 9. Prilosec 40 mg daily. 10. Os-Dandy 500 mg b.i.d. 11. Synthroid 0.1 mg daily. FAMILY HISTORY CAD. SOCIAL HISTORY The patient, I believe, is living with family. He was previously smoking 3/4 pack per day of tobacco, but does not drink alcohol. REVIEW OF SYSTEMS Difficult to obtain as patient himself is pleasantly confused. PHYSICAL EXAMINATION GENERAL APPEARANCE: Pleasantly confused, 85-year-old male who currently is in no acute distress. VITAL SIGNS: Temperature 99.3, pulse 91, respirations 30, blood pressure 101/61, and O2 saturation 91% on 5 liters of oxygen. HEENT: Eyes: PERRLA. Extraocular muscles are intact. Pharynx: Benign. NECK: Supple without adenopathy or thyromegaly. CHEST: Clear. CARDIAC: Normal S1 and S2 without S3, S4, or murmur. ABDOMEN: Bowels sounds are present. No hepatosplenomegaly, tenderness, or masses. EXTREMITIES: Without edema. There is a left knee effusion. The left hip incision looks to be healing quite nicely. No redness or drainage. Left knee shows an effusion and is mildly warm. NEUROLOGIC: Patient is oriented to person. His cranial nerves are intact. He has equal strength throughout, but is very weak throughout. DIAGNOSTIC STUDIES LABORATORY: Hematocrit is 33.3, up from 30.8 earlier this month; white blood count is 14, and normal platelet count. INR is 1.1. SMA-12: Glucose 115 and BUN 29 and creatinine 1.6, up from a BUN of 16 and creatinine of 1.4 earlier this month. Albumin is 3. Cardiac markers are negative. Urinalysis is negative. IMAGING: Chest x-ray shows mild CHF, but the BNP is normal. Head CT: No pyle. Stable generalized ventricular dilation could be secondary to central atrophy or hydrocephalus. Probable chronic ischemic changes. X-ray of the left knee: Moderately large suprapatellar effusion. Generalized demineralization. Moderate DJD. Unit #: [id number] #: [id number] Patient: NINFA GRANADOS ASSESSMENT 1. Weakness, lightheadedness, and orthostatic. 2. Increasing left knee pain with x-ray shows a moderately large suprapatellar effusion and DJD. This area is mildly warm. 3. Dementia. 4. Chronic kidney disease a little worse with decreased p.o. intake. 5. Hypothyroidism. 6. Somewhat low O2 sats. Patient is requiring oxygen. He is requiring 2 liters to keep his O2 sats at 95%. Chest x-ray shows mild CHF, but BNP is normal and EKG appears to be fairly normal as well. There are Qs in III and aVF, but not in lead II. PLANS 1. IV fluids. 2. Recheck labs in the morning. 3. Obtain TSH and blood cultures. 4. SCDs for DVT prophylaxis. 5. Orthopedic service to check left knee. 6. Physical therapy and child welfare social worker to see for fdc placement. 7. Check procalcitonin level. 8. Recheck orthostatics in the morning. 9. Further workup pending above. Dictated by Yaz Hunt/micheal TD: 06/24/2016 05:04 JOB #: [id number] HISTORY AND PHYSICAL Page 1 of 1 X Brenda Britton MD HISTORY AND PHYSICAL
--- NOTE | ~2016-06-23 | DS ---
Unit #: [id number] #: [id number] Patient: NINFA GRANADOS [id number] [address] [place], [place] [address] [id number] I MR#: [id number] NAME: NINFA GRANADOS. ROOM: [facility] Age: 85 Sex: M Admission Date: 06/23/2016 : 1930 Discharge Date: 06/29/2016 Attending Physician: Baldo Pascal M.D. Primary Care Physician: Williams Mckeon M.D. DISCHARGE SUMMARY ADMITTING DIAGNOSIS Weakness, lightheadedness, orthostatic hypotension. FURTHER DIAGNOSES 1. Urinary tract infection with Gram-negative rods. 2. Deep venous thrombosis. 3. Dementia. HISTORY OF PRESENTING ILLNESS The patient is a pleasant 85-year-old gentleman with a past medical history of dementia, hypothyroidism, chronic kidney disease, admitted for weakness, lightheadedness. He is a poor historian and is unable to explain anything. In the emergency room, he was noted to have left leg swelling. Orthopedic surgery was consulted. Dr. Becerra evaluated the patient. They did aspiration of the left knee and did steroid injection. He also had an ultrasound of the left lower extremity which came back positive for DVT. He was started on anticoagulation. He has also obtained PT and OT. (1) followed him in the hospital course. He was noted to have hematuria. UA was sent. UA came back positive for leukocytosis and nitrate. Started on antimicrobials, Rocephin. Final urine culture is pending at this point. He is doing clinically better. No further episodes of lightheadedness and we are planning to send him to rehab today. On the day of the discharge, his physical examination: VITAL SIGNS - temperature 98.5, pulse rate 69, respirations 16, blood pressure 150/72. The patient is alert, pleasantly confused. HEENT - normocephalic, atraumatic. No icterus. PERRLA, extraocular movements intact. NECK is supple. No JVD. HEART - S1, S2. Regular rate and rhythm. CHEST - bilaterally equal, clear to auscultation. ABDOMEN - soft, nontender. EXTREMITIES - no edema. Normal peripheral pulses. DISCHARGE MEDICATIONS Include: 1. Xarelto starter pack 15 mg p.o. b.i.d. for 21 days followed by 20 mg p.o. daily. 2. Tylenol p.r.n. 3. Zoloft 50 mg at bedtime. 4. Zyrtec 10 mg p.o. daily. 5. Klonopin 0.25 mg p.o. at bedtime, p.r.n. insomnia. 6. Bisacodyl 5 mg twice a day. 7. Senokot 8.6 mg twice day. 8. Aspirin 81 mg daily. Unit #: [id number] #: [id number] Patient: NINFA GRANADOS 9. Hydrocodone/Tylenol 5/325, one tab q.4 p.r.n. for pain. 10. Prilosec 40 mg daily. 11. Calcium and vitamin D 500 mg, one tab p.o. twice a day. 12. Synthroid 100 mcg p.o. daily. 13. Rocephin 1 g IV daily for a week. Discussed with the case fitter about the discharge plan. Total time spent in his care - 35 minutes. Dictated by... Yaz Harrell TD: 06/29/2016 11:48 JOB #: [id number] DISCHARGE SUMMARY Page 1 of 1 X X DISCHARGE SUMMARY
--- NOTE | ~2016-06-23 | US84 ---
[id number] [facility] [address] [place], [place] [address] [id number] I MR#: [id number] Acc #: [id number] NAME: NINFA GRANADOS : 1930 SEX: M STUDY DATE/TIME: 06/24/2016 8:15 UNIT: C4B ROOM: [facility] STUDY DESCRIPTION: US LE Veins Complete Devatne Stdy Attending Physician: Baldo Pascal M.D. Ordering Physician: Brenda Britton M.D. Primary Care Physician: Williams Mckeon M.D. MEDICAL IMAGING REPORT This report is preliminary unless electronic signature is present EXAM Lower extremity ultrasound for DVT bilateral, 06/24/2016 INDICATION Left leg pain for years but worsening symptoms this week. No history of DVT or history of blood thinner usage. TECHNIQUE Bravo-scale, color Doppler and spectral analysis of the lower extremities was performed bilaterally. COMPARISON We have no comparisons. FINDINGS The examination is abnormal. There is DVT involving the deep femoral vein on the left. The deep femoral vein demonstrates no flow and is noncompressible. Lower extremities bilaterally otherwise demonstrate no evidence of DVT on either side. IMPRESSION Abnormal examination. DVT in the left lower extremity involving the deep femoral vein. STAT * RESULT Dictated by... Walt Sevilla M.D. THIS IS AN ELECTRONICALLY VERIFIED REPORT Walt Sevilla M.D. at 06/24/2016 5:19 PM Rosmery TD: 06/24/2016 09:10 JOB #: [id number] MEDICAL IMAGING REPORT Page 1 of 1 COPY
--- NOTE | ~2016-06-23 | CO ---
Unit #: [id number] #: [id number] Patient: NINFA GRANADOS [id number] [facility]. [place], [place] [address] [id number] I MR#: [id number] NAME: NINFA GRANADOS. ROOM: [facility] Age: 85 Sex: M Admission Date: 06/23/2016 : 1930 Attending Physician: Baldo Pascal M.D. Primary Care Physician: Williams Mckeon M.D. CONSULTATION REPORT HISTORY OF PRESENT ILLNESS This gentleman is an 85-year-old gentleman, well known to our practice. He has had problems with his left knee off and on for a long period of time. He is admitted to the hospital on the for weakness and postural hypotension. We have been asked to evaluate his left knee. His left knee has been very swollen and painful. He is a poor historian, but he relates this difficulty for the last 2 to 3 weeks. No fevers or chills. He denies any injury to the knee. We have been asked to provide orthopedic care regarding his left knee. PAST MEDICAL HISTORY Significant for multiple medical problems including dementia, hypothyroidism, reflux, depression, anxiety, fibromyalgia, and chronic kidney disease with a creatinine of 1.5. PAST SURGICAL HISTORY Includes pilonidal cyst, left hip replacement for fracture. He has had a hemorrhoidectomy, cholecystectomy, abdominal surgery, cataract extraction, and inguinal hernia repair as well as colonoscopy. ALLERGIES Include codeine. MEDICATIONS He is on a number of medications at home including Zoloft, Zyrtec, Combivent, Senokot, Klonopin, aspirin, Dulcolax, Lortab, Prilosec, Synthroid, and Os-Dandy. SOCIAL HISTORY He lives at home with the family. He is a previous smoker, but does not currently smoke. He does not drink alcohol. REVIEW OF SYSTEMS We attempted to obtain review of systems, but because of his confusion, we were unable to do this. PHYSICAL EXAMINATION GENERAL: Today, he is alert and awake. He is disoriented. VITAL SIGNS: Today show his last blood pressure was 115/67. He is afebrile. His pulse is 72. EXTREMITIES: His orthopedic exam; his left knee has a large effusion. Excellent stability. No redness. It is a little warm because of the effusion, but it seems stable. Sofia is not painful and his range of motion is 5 to about 95. Unit #: [id number] #: [id number] Patient: NINFA GRANADOS DIAGNOSTIC STUDIES IMAGING STUDIES: His x-rays were reviewed and it shows chondrocalcinosis and osteoarthritis. LABORATORY RESULTS: His laboratory was reviewed. His white count was only slightly elevated today at 10.3. His sedimentation rate is 48. IMPRESSION Osteoarthritis of the left knee with a painful effusion. PLAN The plan is for aspiration of the left knee and injection if the fluid is clear. Dictated by... Yaz Carrillo/damon TD: 06/25/2016 19:49 JOB #: [id number] CONSULTATION REPORT Page 1 of 1 X Sterling Becerra MD X CONSULTATION REPORT
--- NOTE | ~2016-06-23 | CT71 ---
[facility] A Service of [facility] RADIOLOGY TEXT RESULTS PATIENT: NINFA GRANADOS LOCATION: [facility] : 31 UNIT #: [id number] AGE: [address]: Mariola Zacarias MD SEX: M ORDER DR: [id number] [address] [address] [id number] E MR#: [id number] Acc #: [id number] NAME: NINFA GRANADOS : 1930 SEX: M STUDY DATE/TIME: 06/23/2016 19:21 UNIT: [facility] ROOM: STUDY DESCRIPTION: CT Head Wo Contrast Attending Physician: Mariola Zacarias M.D. Ordering Physician: Mariola Zacarias M.D. Primary Care Physician: Williams Mckeon M.D. MEDICAL IMAGING REPORT This report is preliminary unless electronic signature is present EXAM CT brain without contrast HISTORY Weakness and dizzy and vomiting today. TECHNIQUE This CT exam was performed with one or more of the following radiation dose reduction techniques: automatic control, adjustment of mA and/or kV according to patient size, and iterative reconstruction. FINDINGS CT brain without contrast is compared to 06/03/2016. There is moderately severe generalized ventricular dilatation, stable compared to the prior CT, which could be secondary to central atrophy or hydrocephalus. Moderate probable chronic ischemic changes in the periventricular white matter bilaterally. No intracranial hemorrhage, mass or edema. No extraaxial fluid collection or focal atrophy. IMPRESSION 1. No change compared to 06/03/2016. Stable generalized ventricular dilatation could be secondary to central atrophy or hydrocephalus. There is also probable chronic ischemic change in the periventricular white matter bilaterally. 2. No intracranial hemorrhage or edema. Dictated by... Medardo De M.D. [facility] A Service of [facility] RADIOLOGY TEXT RESULTS PATIENT: NINFA GRANADOS LOCATION: [facility] : 31 UNIT #: [id number] AGE: [address]: Mariola Zacarias MD SEX: M ORDER DR: THIS IS AN ELECTRONICALLY VERIFIED REPORT Medardo De M.D. at 06/23/2016 8:52 PM CORINNA/monik TD: 06/23/2016 19:52 JOB #: [id number] MEDICAL IMAGING REPORT Page 1 of 1 COPY
--- NOTE | ~2016-06-23 | EKG ---
PATIENT: NINFA GRANADOS UNIT #: [id number] Ventricular Rate: 81 BPM Atrial Rate: 81 BPM P-R Interval: 170 ms QRS Duration: 116 ms Q-T Interval: 398 ms QTC Calculation(Bezet): 462 ms P [place]: 37 degrees Calculated R [place]: -59 degrees Calculated T [place]: 25 degrees Diagnosis Line: Normal sinus rhythm Diagnosis Line: Left axis deviation Diagnosis Line: Left anterior fascicular block Diagnosis Line: Abnormal ECG Diagnosis Line: When compared with ECG of 03-JUN-2016 14:42, Diagnosis Line: No significant change was found Diagnosis Line: Confirmed by KATHERINE GONZALEZ MD ([id number]) on Diagnosis Line: 06/24/2016 11:12:27 PM INTERPRETING : LINDA
--- NOTE | ~2016-06-23 | CR72 ---
[facility] A Service of [facility] RADIOLOGY TEXT RESULTS PATIENT: NINFA GRANADOS LOCATION: [facility] : 31 UNIT #: [id number] AGE: [address]: Mariola Zacarias MD SEX: M ORDER DR: [id number] [facility] [address] [place], [place] [address] [id number] E MR#: [id number] Acc #: [id number] NAME: NINFA GRANADOS. : 1930 SEX: M STUDY DATE/TIME: 06/23/2016 18:58 UNIT: [facility] ROOM: STUDY DESCRIPTION: CR Chest Single View Portable Attending Physician: Mariola Zacarias M.D. Ordering Physician: Mariola Zacarias M.D. Primary Care Physician: Williams Mckeon M.D. MEDICAL IMAGING REPORT This report is preliminary unless electronic signature is present EXAM Portable chest HISTORY Shortness of breath and hypotension, onset today. COMPARISON Single view of the chest was obtained compared with 06/03/2016 FINDINGS The heart and mediastinum are stable with a tortuous aorta again seen, accompanied by cardiomegaly. In the lungs, pulmonary vascular markings are slightly worse. Some of this is due to shallow inspiratory effort. I do think that there is an element of increased pulmonary vascularity, as well. No pleural fluid is seen and no focal infiltrates are noted. IMPRESSION Mild increase in pulmonary vascular congestion since previous exam. Probable mild congestive heart failure or fluid overload. Dictated by... Glenroy High M.D. THIS IS AN ELECTRONICALLY VERIFIED REPORT Glenroy High M.D. at 06/23/2016 10:22 PM UZIEL/nadiya TD: 06/23/2016 19:22 JOB #: [id number] MEDICAL IMAGING REPORT Page 1 of 1 COPY
[~2016-06-23 19:01] MED LIST changes: +ASPIRIN81 MG PO; +BISACODYL5 M2 PO; +COMBIVENT MININEB INH; +LEVOTHYROXINE100 MCG PO; +LORCET 5-325 M1 EACH PO; +LORTAB 5-325 M1 EACH PO; +OS-CAL 500500 MG PO; +ZYRTEC10 M1 PO
[2016-06-23 19:05] LABS: BASOPHIL# 0.1 X10e3 (0-0.3); BASOPHIL% 0.5 % (0-2.5); EOSINOPHIL% 0.2 % (0.0-7.0); HEMATOCRIT 33.3 % (38.0-50.0); LYMPHOCYTE# 0.7 X10e3 (1.0-3.5); LYMPHOCYTE% 5.3 % (17.0-45.0); MEAN CELL VOLUME 89.5 FL (83-96); MEAN CORPUSCULAR HEMOGLOBIN 29.5 PG (28-34); MEAN PLATELET VOLUME 8.5 FL (6.5-11.5); MONOCYTE# 1.5 X10e3 (0-1.0); MONOCYTE% 10.9 % (3.0-12.0); NEUTROPHIL# 11.6 X10e3 (1.5-7.1); NEUTROPHIL% 83.1 % (40-75); PLATELET COUNT 245 X10e3 (140-420); RED BLOOD COUNT 3.72 X10e (3.90-5.60); WHITE BLOOD COUNT 13.9 X10e3 (4.0-10.5)
[2016-06-23 19:07] LABS: DIFF IND NO
[2016-06-23 19:15] LABS: POC - CKMB 1.3 ng/mL (0.0-7.9); POC - TROPONIN <0.05 ng/mL (<=0.05)
[2016-06-23 19:17] LABS: INR 1.1; PROTHROMBIN TIME (PATIENT) 11.9 SECONDS (9.6-11.5)
[2016-06-23 19:29] LABS: BILIRUBIN, DIRECT 0.1 mg/dL (0.0-0.2); BILIRUBIN,INDIRECT 0.4 mg/dL (0.0-0.9); BILIRUBIN,TOTAL 0.5 mg/dL (0.2-2.0); BUN/CREATININE RATIO 18.12; CALCIUM SERUM 8.5 mg/dL (8.4-10.2); CREATININE SERUM 1.6 mg/dL (0.6-1.4); POTASSIUM 3.8 mmol/L (3.5-5.1); PROTEIN TOTAL SERUM 6.7 g/dL (6.0-8.3)
[2016-06-23 20:51] LABS: URINE APPEARANCE CLEAR; URINE BILIRUBIN NEG (NEG); URINE BLOOD NEG (NEG); URINE COLOR DK YELLOW; URINE GLUCOSE NEG (NEG); URINE KETONE NEG (NEG); URINE LEUKOCYTE ESTERASE NEG (NEG); URINE NITRATE NEG (NEG); URINE PROTEIN NEG (NEG)
[2016-06-23 20:58] LABS: URINE SOURCE CATH
[2016-06-23 20:59] LABS: CULTURE INDICATED? NO
[2016-06-24 03:07] LABS: BASOPHIL# 0.1 X10e3 (0-0.3); BASOPHIL% 0.8 % (0-2.5); EOSINOPHIL% 0.2 % (0.0-7.0); HEMATOCRIT 32.8 % (38.0-50.0); HEMOGLOBIN 10.6 gm/dL (13.0-16.0); LYMPHOCYTE# 1.5 X10e3 (1.0-3.5); LYMPHOCYTE% 11.2 % (17.0-45.0); MEAN CELL VOLUME 89.3 FL (83-96); MEAN CORPUSCULAR HGB CONC 32.5 g/dL (30-36); MEAN PLATELET VOLUME 8.7 FL (6.5-11.5); MONOCYTE# 1.6 X10e3 (0-1.0); MONOCYTE% 11.7 % (3.0-12.0); NEUTROPHIL# 10.4 X10e3 (1.5-7.1); NEUTROPHIL% 76.1 % (40-75); PLATELET COUNT 232 X10e3 (140-420); RED BLOOD COUNT 3.67 X10e (3.90-5.60); RED CELL DISTRIBUTION WIDTH 13.8 % (11.0-15.5); WHITE BLOOD COUNT 13.7 X10e3 (4.0-10.5)
[2016-06-24 03:08] LABS: DIFF IND NO
[2016-06-24 03:28] LABS: CALCIUM SERUM 8.4 mg/dL (8.4-10.2); CREATININE SERUM 1.5 mg/dL (0.6-1.4); GLOM FILT RATE Estimated 42.2 mL/min (>60); POTASSIUM 3.7 mmol/L (3.5-5.1)
[2016-06-25 04:29] LABS: BASOPHIL# 0.1 X10e3 (0-0.3); BASOPHIL% 0.6 % (0-2.5); EOSINOPHIL# 0.2 X10e3 (0-0.7); EOSINOPHIL% 1.7 % (0.0-7.0); HEMATOCRIT 31.1 % (38.0-50.0); HEMOGLOBIN 10.4 gm/dL (13.0-16.0); LYMPHOCYTE# 1.6 X10e3 (1.0-3.5); LYMPHOCYTE% 15.8 % (17.0-45.0); MEAN CELL VOLUME 88.1 FL (83-96); MEAN CORPUSCULAR HEMOGLOBIN 29.5 PG (28-34); MEAN CORPUSCULAR HGB CONC 33.5 g/dL (30-36); MEAN PLATELET VOLUME 8.7 FL (6.5-11.5); MONOCYTE# 1.2 X10e3 (0-1.0); MONOCYTE% 11.7 % (3.0-12.0); NEUTROPHIL# 7.2 X10e3 (1.5-7.1); NEUTROPHIL% 70.2 % (40-75); PLATELET COUNT 223 X10e3 (140-420); RED BLOOD COUNT 3.53 X10e (3.90-5.60); RED CELL DISTRIBUTION WIDTH 13.9 % (11.0-15.5); WHITE BLOOD COUNT 10.3 X10e3 (4.0-10.5)
[2016-06-25 04:37] LABS: DIFF IND NO
[2016-06-25 04:49] LABS: CALCIUM SERUM 8.4 mg/dL (8.4-10.2); CREATININE SERUM 1.4 mg/dL (0.6-1.4); GLOM FILT RATE Estimated 45.8 mL/min (>60); POTASSIUM 3.2 mmol/L (3.5-5.1)
[2016-06-27 03:14] LABS: BUN/CREATININE RATIO 17.5; CALCIUM SERUM 8.5 mg/dL (8.4-10.2); CREATININE SERUM 1.2 mg/dL (0.6-1.4); GLOM FILT RATE Estimated 55.2 mL/min (>60); POTASSIUM 3.5 mmol/L (3.5-5.1)
[2016-06-27 18:00] LABS: URINE APPEARANCE CLOUDY; URINE BILIRUBIN NEG (NEG); URINE BLOOD 3+ (NEG); URINE COLOR YELLOW; URINE GLUCOSE NEG (NEG); URINE KETONE NEG (NEG); URINE LEUKOCYTE ESTERASE 2+ (NEG); URINE NITRATE POS (NEG); URINE PH 5.5 (5-8); URINE PROTEIN 2+ (NEG); URINE SPECIFIC GRAVITY 1.018 (1.003-1.035)
[2016-06-27 18:02] LABS: CULTURE INDICATED? YES; URBCS1 AUWI INNUM /[HPF] (0-2); URINE BACTERIA AUWI 1+ (NEGATIVE); URINE SQUAMOUS EPITHELIAL CELL NONE SEEN /[HPF]; UWBCS1 AUWI 50-100 (0-5)
[2016-06-29 01:48] LABS: BASOPHIL# 0.1 X10e3 (0-0.3); BASOPHIL% 0.8 % (0-2.5); EOSINOPHIL# 0.4 X10e3 (0-0.7); EOSINOPHIL% 3.4 % (0.0-7.0); HEMATOCRIT 32.6 % (38.0-50.0); HEMOGLOBIN 10.9 gm/dL (13.0-16.0); MEAN CELL VOLUME 87.2 FL (83-96); MEAN CORPUSCULAR HEMOGLOBIN 29.1 PG (28-34); MEAN CORPUSCULAR HGB CONC 33.4 g/dL (30-36); MEAN PLATELET VOLUME 8.6 FL (6.5-11.5); MONOCYTE# 1.2 X10e3 (0-1.0); MONOCYTE% 9.3 % (3.0-12.0); NEUTROPHIL# 8.9 X10e3 (1.5-7.1); NEUTROPHIL% 70.5 % (40-75); PLATELET COUNT 276 X10e3 (140-420); RED BLOOD COUNT 3.73 X10e (3.90-5.60); RED CELL DISTRIBUTION WIDTH 13.7 % (11.0-15.5); WHITE BLOOD COUNT 12.7 X10e3 (4.0-10.5)
[2016-06-29 01:49] LABS: DIFF IND YES
[2016-06-29 02:03] LABS: BUN/CREATININE RATIO 17.69; CALCIUM SERUM 8.1 mg/dL (8.4-10.2); CREATININE SERUM 1.3 mg/dL (0.6-1.4); GLOM FILT RATE Estimated 50.1 mL/min (>60)
[2016-06-29 02:05] LABS: POTASSIUM 2.9 mmol/L (3.5-5.1)
[2016-06-29 02:23] LABS: HYPOCHROMIA SL; PLATELET ESTIMATE NORMAL (NORMAL)
== END 2016-06-29 19:20 | DRG 565 ==
LOC: CED 19:01 → CEDOF 23:20 → C4B 06-24 05:43
PROVIDERS: Emergency Medicine; Internal Medicine
PROC: B24BYZZ Ultrasonography of Heart with Aorta using Other Contrast (ICD-10-PCS; 2016-06-24)
PROC: 0SBD3ZX Excision of Left Knee Joint, Percutaneous Approach, Diagnostic (ICD-10-PCS; principal; 2016-06-25)
DX: M25.462 Effusion, left knee (principal); E44.1 Mild protein-calorie malnutrition; F03.90 Unspecified dementia, unspecified severity, without behavioral disturbance, psychotic disturbance, mood disturbance, and anxiety; I82.4Z2 Acute embolism and thrombosis of unspecified deep veins of left distal lower extremity; N39.0 Urinary tract infection, site not specified; R42 Dizziness and giddiness; R53.1 Weakness; M17.12 Unilateral primary osteoarthritis, left knee; E03.9 Hypothyroidism, unspecified; K21.9 Gastro-esophageal reflux disease without esophagitis; M79.7 Fibromyalgia; F32.9 Major depressive disorder, single episode, unspecified; F41.9 Anxiety disorder, unspecified; Z90.49 Acquired absence of other specified parts of digestive tract; Z98.49 Cataract extraction status, unspecified eye; I95.1 Orthostatic hypotension; R31.9 Hematuria, unspecified; N18.3 Chronic kidney disease, stage 3 (moderate); Z68.25 Body mass index [BMI] 25.0-25.9, adult
CPT/HCPCS: 36415; 51701; 70450; 71010; 73560; 80048; 80076; 81003; 82308; 82550; 82553; 82947; 83735; 83880; 84132; 84443; 84484; 85025; 85610; 87040; 87086; 87088; 87186; 93005; 93306; 93970; 94760; 97110; 97116; 97162; 97530; 99285; G8978-GP; G8979-GP; J0696; J1040; J1650; J2405; J3475